=== PATIENT | female | born 1965 | race Caucasian/White ===

== ENCOUNTER 2019-06-16 00:33 | Inpatient (IN) | payer MEDICARE, OTHER ==
[~2019-06-16] VITALS: Ht 160 cm; Wt 77.1 kg
--- NOTE | 2019-06-16 01:00 | NUR ---
GPS ADMISSION NOTE, RECEIVED PATIENT FROM [facility] [place]. PATIENT ARRIVED ON THIS UNIT AT 0100 VIA STRETCHER WITH 2 EMT ESCORTS. PATIENT ADMITTED ON A 5150 HOLD FOR GD. PER HOLD PATIENT IS CONFUSED, DISORGANIZED, AND IS DISROBING. PATIENT CAN ONLY RECALL EATING AN ORANGE IN THE PAST FEW DAYS. ALL PATIENT CLOTHING IS COVERED WITH URIN. PATIENT HAS BEEN TAKING FOUR DAYS WORTH OF MEDICATION IN TWO DAYS. PATIENT UNABLE TO SELF CARE AT THIS TIME. THE 5150 WAS REVIEWED AND THE DOCUMENTATION IN THE 5150 HOLD APPEARS TO REFLECT THE PRESENTATION OF THE PATIENT. UPON FACE TO FACE ASSESSMENT PATIENT IS NOTED TO BEING ANXIOUS, DISHEVELED, DISORGANIZED, DEMANDING, COOPERATIVE AT TIMES, PARANOID, CONFUSED, AND NEEDS REDIRECTION. PATIENT IS CURRENTLY LYING IN BED AWAKE, HAS NO S/S OR COMPLAINTS OF PAIN. PATIENT IS DISPLAYING NO S/S OF APPARENT DISTRESS. PATIENT BREATHING IS UNLABORED WITH EQUAL RISE AND FALL OF THE CHEST. PATIENT IS ALERT AND ORIENTATED X 1 ON ROOM AIR. PATIENT ASSISTED WITH TURING AND REPOSITIONING Q2HR AND PRN FOR COMFORT AND CIRCULATION. PATIENT HAS NO NEEDS AT THIS TIME. PATIENT DENIES SUICIDE IDEATIONS AND HOMICIDAL IDEATIONS AT THIS TIME. PATIENT ADVISED OF HIS HOLD AND PATIENT RIGHTS BOOKLET GIVEN. PATIENT IS UNDER THE PSYCHIATRIC CARE OF DR. STOVER AND THE MEDICAL CARE OF DR CRUMP. PATIENT BELONGINGS WERE INVENTORIED AND CHECKED FOR CONTRABAND. ALL CONTRABAND REMOVED AND STORED IN PATIENT HALLWAY LOCKER. PATIENT ADVANCED DIRECTIVES PREFERENCE, IMMUNIZATIONS QUESTIONER, NECESSARY PAPERWORK COMPLETED. PATIENT SKIN ASSESSMENT COMPLETED. PATIENT REFUSED TO SIGN PAPERWORK. PATIENT ORIENTATED TO ROOM, FLOOR, AND STAFF WITH ALL QUESTIONS ANSWERED. PATIENT EDUCATED ON THE USE OF THE CALL BUENO. PATIENT BED SIDE RAILS ARE UP X 2 FOR SAFETY. PATIENT BED IS LOCKED, LOW AND I WILL CONTINUE TO MONITOR THIS PATIENT Q 15 MIN WITH THE HELP OF STAFF TO MAINTAIN SAFETY.
[2019-06-16] MEDS ORDERED: BLOOD SUGAR DIAGNOSTIC 1 EACH STRIP IN ONE (01:30)
[2019-06-16] MEDS ORDERED: MAGNESIUM HYDROXIDE 30 ML UDC PO PRN (01:30)
[2019-06-16] MEDS ORDERED: TEMAZEPAM 7.5 MG CAPSULE PO PRN (01:30)
[2019-06-16] MEDS ORDERED: MAG HYDROX/AL HYDROX/SIMETH 30 ML UDC PO PRN (01:30)
[2019-06-16] MEDS ORDERED: ATOR40TA PO (02:21)
[2019-06-16] MEDS ORDERED: GABA-534 PO ×2 (02:21→07:59)
[2019-06-16] MEDS ORDERED: DIVA500T54 PO (02:21)
[2019-06-16] MEDS ORDERED: METR70GE17 VG (02:21)
[2019-06-16] MEDS ORDERED: DOCU100C36 PO (02:21)
[2019-06-16] MEDS ORDERED: CLOZ100T32 PO (02:21)
[2019-06-16] MEDS ORDERED: VENL150C58 PO (02:21)
[2019-06-16] MEDS ORDERED: DOXY100C2 PO ×2 (02:30→23:02)
[2019-06-16] MEDS ORDERED: DIVA250T47 PO (07:59)
[2019-06-16 08:00] VITALS: BP 141/57
--- NOTE | 2019-06-16 08:42 | NUR ---
RN NOTE: CONTACTED [employer] WITH DR. CHING. AWAITING CALL BACK. Addendum: 06/16/19 at 1123 by YAIR CHRISTENSEN RN SPOKE WITH DR CHING, HE WILL REVIEW PATIENT'S MEDICATIONS
--- NOTE | 2019-06-16 11:16 | NUR ---
RN NOTE: PATIENT COMPLAINING OF UPSET STOMACH. PRN MAALOX GIVEN.
[2019-06-16 16:00] VITALS: BP 108/66
[2019-06-16] MEDS: GABAPENTIN 300 MG CAPSULE PO SCH (16:33)
[2019-06-16 20:00] VITALS: BP 102/73
[2019-06-16] MEDS: DIVALPROEX SODIUM 250 MG TABLET.DR PO SCH (20:09)
[2019-06-16] MEDS: ATORVASTATIN 40 MG TABLET PO SCH (21:42)
[2019-06-16] MEDS: METRONIDAZOLE 0.75% GEL 70 GM TUBE VG SCH (22:00)
[2019-06-16] MEDS ORDERED: CLOZAPINE 100 MG TABLET PO SCH (22:00)
--- NOTE | 2019-06-16 23:19 | NUR ---
GPS RN NOTE, PATIENT HAS A HISTORY OF PNEUMONIA, PATIENT WAS TAKING DOXYCYCLINE HYCLATE 100 MG PO BID, AND HAS AN ELEVATED WHITE BLOOD CELL COUNT OF 16.1 ON 06/14/19. PATIENT HAS UNPRODUCTIVE COUGH WITH A SPO2 94 %. PAGED [facility] AND INFORMED DR SHEA CRUMP OF MY FINDINGS. DR SHEA CRUMP ORDERED TO GIVE LEVAQUIN 500 MG PO QD TO BE STARTED AT 0900. ALL ORDERS NOTED AND CARRIED OUT. WILL CONTINUE TO MONITOR THIS PATIENT.
--- NOTE | 2019-06-16 23:30 | NUR ---
GPS RN NOTES: [employer] WAS READY WITH MEDICATION LEVAQUIN 500 MG FOR THE FIRST DOSE, HOWEVER [employer] WAS STOPPED BY THE CHARGE NURSE AND STATED THERE IS A NOTE NOT TO ADMINISTER, SO THE MEDICATION WAS NOT ADMINISTERED. MEDICATION THEN RETURNED ON THE OMNICELL. WILL ENDORSE TO DAY SHIFT NURSE.
[2019-06-16] MEDS ORDERED: LEVOFLOXACIN (500MG) 500 MG TABLET PO ONE (23:45)
[2019-06-17 07:08] LABS: CALCIUM, SERUM 9.5 mg/dL (8.5-10.1); POTASSIUM 4.7 mmol/L (3.5-5.1)
[2019-06-17 07:09] LABS: ALBUMIN 1.9 g/dL (3.4-5.0); BILIRUBIN,TOTAL 0.2 mg/dL (0.2-1.0); TOTAL PROTEIN, SERUM 6.8 g/dL (6.4-8.2)
[2019-06-17 07:10] LABS: CHOLESTEROL 107 mg/dL (<200); HDL CHOLESTEROL 27 mg/dL (40-60); LDL 65 mg/dL (0-99); TRIGLYCERIDES 147 mg/dL (30-150)
[2019-06-17 07:32] LABS: BASOPHILS % (AUTO) 0.3 % (0.0-2.0); EOSINOPHILS % (AUTO) 4.5 % (0.0-6.0); HEMATOCRIT 30 % (33-45); HEMOGLOBIN 9.6 g/dL (11.5-14.8); LYMPHOCYTES # (AUTO) 1.2 /CMM (0.8-4.8); LYMPHOCYTES % (AUTO) 10.4 % (20.0-44.0); MEAN CORPUSCULAR HGB CONC 32 g/dl (31.0-36.0); MEAN CORPUSCULAR VOLUME 90 fL (82-100); MONOCYTES # (AUTO) 1.5 /CMM (0.1-1.30); MONOCYTES % (AUTO) 12.5 % (2.0-12.0); NEUTROPHILS # (AUTO) 8.6 /CMM (1.8-8.9); NEUTROPHILS % (AUTO) 72.3 % (43.0-81.0); PLATELET COUNT (AUTO) 482 /CMM (150-450); RED BLOOD CELL COUNT(AUTO) 3.35 MIL/uL (4.0-5.2); WHITE BLOOD COUNT (AUTO) 11.9 K/uL (4.3-11.0)
[2019-06-17 08:00] VITALS: BP 111/64
[2019-06-17] MEDS: LEVOFLOXACIN (500MG) 500 MG TABLET PO SCH (08:34)
[2019-06-17] MEDS: DIVALPROEX SODIUM 250 MG TABLET.DR PO SCH ×2 (08:34→12:32)
[2019-06-17] MEDS: GABAPENTIN 300 MG CAPSULE PO SCH ×2 (08:34→12:32)
[2019-06-17] MEDS: DOCUSATE SODIUM 100 MG CAPSULE PO SCH ×2 (08:34→16:51)
[2019-06-17 16:00] VITALS: BP 108/71
[2019-06-17] MEDS: GABAPENTIN 100 MG CAPSULE PO SCH (16:51)
[2019-06-17] MEDS ORDERED: GABAPENTIN 300 MG CAPSULE PO SCH (17:00)
[2019-06-17 19:57] VITALS: BP 111/61
[2019-06-17] MEDS: DIVALPROEX SODIUM 125 MG TABLET.DR PO SCH (21:09)
[2019-06-17] MEDS: ATORVASTATIN 40 MG TABLET PO SCH (21:09)
--- NOTE | 2019-06-17 21:09 | NUR ---
GPS RN NOTE PT REQUESTING FOR SLEEPING MED. RESTORIL 7.5 MG PO GIVEN FOR INSOMNIA. CONTINUE TO MONITOR HER.
[2019-06-17] MEDS: CLOZAPINE 100 MG TABLET PO SCH (21:12)
[2019-06-17] MEDS: METRONIDAZOLE 0.75% GEL 70 GM TUBE VG SCH (21:35)
--- NOTE | 2019-06-17 22:09 | NUR ---
GPS RN NOTE PT FALL ASLEEP. NO DISTRESS OR DISCOMFORT NOTED.
[2019-06-18 07:42] LABS: BASOPHILS # (AUTO) 0.1 /CMM (0.0-0.2); BASOPHILS % (AUTO) 0.6 % (0.0-2.0); EOSINOPHILS % (AUTO) 4.4 % (0.0-6.0); HEMATOCRIT 28 % (33-45); HEMOGLOBIN 9.3 g/dL (11.5-14.8); LYMPHOCYTES # (AUTO) 1.9 /CMM (0.8-4.8); LYMPHOCYTES % (AUTO) 15.2 % (20.0-44.0); MEAN CORPUSCULAR HGB CONC 33 g/dl (31.0-36.0); MEAN CORPUSCULAR VOLUME 90 fL (82-100); MONOCYTES # (AUTO) 1.3 /CMM (0.1-1.30); NEUTROPHILS # (AUTO) 8.5 /CMM (1.8-8.9); NEUTROPHILS % (AUTO) 68.8 % (43.0-81.0); PLATELET COUNT (AUTO) 492 /CMM (150-450); RED BLOOD CELL COUNT(AUTO) 3.15 MIL/uL (4.0-5.2); WHITE BLOOD COUNT (AUTO) 12.3 K/uL (4.3-11.0)
[2019-06-18 07:55] LABS: ALBUMIN 1.9 g/dL (3.4-5.0); BILIRUBIN,TOTAL 0.1 mg/dL (0.2-1.0); CALCIUM, SERUM 9.3 mg/dL (8.5-10.1); CREATININE 1.1 mg/dL (0.6-1.3); POTASSIUM 4.6 mmol/L (3.5-5.1); TOTAL PROTEIN, SERUM 6.6 g/dL (6.4-8.2)
[2019-06-18 08:00] VITALS: BP 100/52
[2019-06-18] MEDS: LEVOFLOXACIN (500MG) 500 MG TABLET PO SCH (08:05)
[2019-06-18] MEDS: DOCUSATE SODIUM 100 MG CAPSULE PO SCH ×2 (08:05→17:24)
[2019-06-18] MEDS: DIVALPROEX SODIUM 125 MG TABLET.DR PO SCH ×3 (08:05→21:17)
[2019-06-18] MEDS: GABAPENTIN 100 MG CAPSULE PO SCH ×3 (08:05→17:24)
[2019-06-18 09:59] LABS: BAND % (MANUAL) 1 % (0.0-5.0); LYMPHOCYTES % (MANUAL) 14 % (16-48); MONOCYTES % (MANUAL) 8 % (0-11.0); NEUTROPHILS % (MANUAL) 72 (42-76)
[2019-06-18 10:00] LABS: EOSINOPHILS % (MANUAL) 5 % (0-4)
[2019-06-18] MEDS: ACETAMINOPHEN 325 MG TABLET PO PRN (13:51)
[2019-06-18 16:00] VITALS: BP 124/78
[2019-06-18 20:28] VITALS: BP 117/89
[2019-06-18] MEDS: ATORVASTATIN 40 MG TABLET PO SCH (21:17)
[2019-06-18] MEDS: CLOZAPINE 100 MG TABLET PO SCH (21:18)
[2019-06-18] MEDS: METRONIDAZOLE 0.75% GEL 70 GM TUBE VG SCH (21:23)
[2019-06-19 00:14] LABS: APPEARANCE,URINE CLEAR (CLEAR); BILIRUBIN,URINE NEGATIVE (NEGATIVE); BLOOD, URINE NEGATIVE Ery/uL (NEGATIVE); COLOR,URINE OTHER (YELLOW); KETONES,URINE NEGATIVE (NEGATIVE); LEUKOCYTE ESTERASE ,URINE NEGATIVE (NEGATIVE); NITRITE, URINE NEGATIVE (NEGATIVE); PH,URINE 6.5 (5.0-8.0); PROTEIN,URINE NEGATIVE (NEGATIVE); UGLUCOSE NEGATIVE (NEGATIVE); UROBILINOGEN,URINE 0.2 EU/dL (0.2)
[2019-06-19 08:00] VITALS: BP 100/75
[2019-06-19] MEDS: LEVOFLOXACIN (500MG) 500 MG TABLET PO SCH (08:06)
[2019-06-19] MEDS: GABAPENTIN 100 MG CAPSULE PO SCH ×3 (08:06→16:29)
[2019-06-19] MEDS: DOCUSATE SODIUM 100 MG CAPSULE PO SCH ×2 (08:06→16:29)
[2019-06-19] MEDS: DIVALPROEX SODIUM 125 MG TABLET.DR PO SCH ×3 (08:06→19:40)
--- NOTE | 2019-06-19 10:56 | NUR ---
INITIAL DISCHARGE PLAN: Patient wishes to return home to [address] [facility] [address]. SW will help form a safe and proper discharge in collaboration with .
--- NOTE | 2019-06-19 14:00 | NUR ---
GROUP NOTE: SW encouraged pt to participate in group therapy on this present day to discuss "positive coping skills." Pt refused to attend and stated that she would rather stay in her room where she felt same. Pt requested the phone so she could talk to her sister. SW provided intervention and addressed pts treatment and discharge plan, pt stated that she was ready to go home and that she did not want to stay here until Monday as she felt she has received the help she needed and is ready to go back to her normal life.
[2019-06-19 16:00] VITALS: BP 123/68
[2019-06-19] MEDS: ACETAMINOPHEN 325 MG TABLET PO PRN (18:21)
--- NOTE | 2019-06-19 18:21 | NUR ---
GPS/RN-NOTES PATIENT C/O BOTH LEGS PAIN AND REQUESTING TYLENOL. TYLENOL 650MG P.O GIVEN PRN ORDER. WILL ENDORSE TO INCOMING NURSE FOR MONITORING AND CONTINUITY OF CARE.
[2019-06-19 20:07] VITALS: BP_SYST 123; BP_SYST 146; BP_DIAS 70; BP_DIAS 77
[2019-06-19] MEDS: METRONIDAZOLE 0.75% GEL 70 GM TUBE VG SCH (21:05)
[2019-06-19] MEDS: ATORVASTATIN 40 MG TABLET PO SCH (21:05)
[2019-06-19] MEDS: CLOZAPINE 100 MG TABLET PO SCH (21:06)
[2019-06-19] MEDS: LORAZEPAM 0.5 MG TABLET PO PRN (22:27)
[2019-06-20 08:00] VITALS: BP 100/62
[2019-06-20] MEDS: LEVOFLOXACIN (500MG) 500 MG TABLET PO SCH (08:26)
[2019-06-20] MEDS: DIVALPROEX SODIUM 125 MG TABLET.DR PO SCH ×3 (08:26→19:51)
[2019-06-20] MEDS: GABAPENTIN 100 MG CAPSULE PO SCH ×3 (08:26→16:19)
[2019-06-20] MEDS: DOCUSATE SODIUM 100 MG CAPSULE PO SCH ×2 (08:26→16:19)
--- NOTE | 2019-06-20 09:07 | NUR ---
INTERVENTION: SW informed pt of her PROBABLE CAUSE hearing scheduled on this present day. pt stated that she did not want to attend and wanted to stay here until the doctor decided when it was time for her to go.
--- NOTE | 2019-06-20 13:32 | NUR ---
PATY received a call from DIVYA Quesada at [facility] [address] [place] [address], [phone] stating that transportation can be arranged for pt on Monday06/24/19 at 12:00pm. PATY confirmed flower buncher or picker and discharge for Monday06/24/19
[2019-06-20 16:00] VITALS: BP 135/93
--- NOTE | 2019-06-20 17:01 | NUR ---
RN NOTE: PATIENT COMPLAINING OF PAIN 4/10 ON ABDOMEN. PRN TYLENOL GIVEN.
[2019-06-20 20:34] VITALS: BP 107/61
[2019-06-20] MEDS: CLOZAPINE 100 MG TABLET PO SCH (21:07)
[2019-06-20] MEDS: ATORVASTATIN 40 MG TABLET PO SCH (21:07)
[2019-06-20] MEDS: METRONIDAZOLE 0.75% GEL 70 GM TUBE VG SCH (21:08)
[2019-06-20] MEDS: LORAZEPAM 0.5 MG TABLET PO PRN (23:10)
[2019-06-21 07:40] LABS: BASOPHILS # (AUTO) 0.1 /CMM (0.0-0.2); BASOPHILS % (AUTO) 0.7 % (0.0-2.0); EOSINOPHILS % (AUTO) 5.8 % (0.0-6.0); HEMATOCRIT 31 % (33-45); HEMOGLOBIN 10.1 g/dL (11.5-14.8); LYMPHOCYTES # (AUTO) 1.7 /CMM (0.8-4.8); LYMPHOCYTES % (AUTO) 21.7 % (20.0-44.0); MEAN CORPUSCULAR HGB CONC 32 g/dl (31.0-36.0); MEAN CORPUSCULAR VOLUME 90 fL (82-100); MONOCYTES # (AUTO) 0.9 /CMM (0.1-1.30); MONOCYTES % (AUTO) 11.3 % (2.0-12.0); NEUTROPHILS # (AUTO) 4.6 /CMM (1.8-8.9); NEUTROPHILS % (AUTO) 60.5 % (43.0-81.0); PLATELET COUNT (AUTO) 574 /CMM (150-450); RED BLOOD CELL COUNT(AUTO) 3.48 MIL/uL (4.0-5.2); WHITE BLOOD COUNT (AUTO) 7.6 K/uL (4.3-11.0)
[2019-06-21 07:45] LABS: ALBUMIN 2.3 g/dL (3.4-5.0); BILIRUBIN,TOTAL 0.1 mg/dL (0.2-1.0); CALCIUM, SERUM 9.3 mg/dL (8.5-10.1); CREATININE 1.2 mg/dL (0.6-1.3); POTASSIUM 4.4 mmol/L (3.5-5.1); TOTAL PROTEIN, SERUM 6.7 g/dL (6.4-8.2)
[2019-06-21 08:00] VITALS: BP 113/65
[2019-06-21] MEDS: LEVOFLOXACIN (500MG) 500 MG TABLET PO SCH (08:19)
[2019-06-21] MEDS: DIVALPROEX SODIUM 125 MG TABLET.DR PO SCH ×3 (08:19→20:15)
[2019-06-21] MEDS: DOCUSATE SODIUM 100 MG CAPSULE PO SCH ×2 (08:19→16:35)
[2019-06-21] MEDS: GABAPENTIN 100 MG CAPSULE PO SCH ×3 (08:19→16:35)
--- NOTE | 2019-06-21 10:16 | NUR ---
PATY contacted Sangita RN at [facility] [address] [place] [address], [phone] to confirm transportation for pt on Monday06/24/19. Per Sangita, transportation will be provided through [employer] [phone] and also stated that they are requesting discharge paperwork the day of pts discharge be faxed to [phone] for picker / packer. PATY will fax discharge paperwork on Monday06/24/19.
--- NOTE | 2019-06-21 15:21 | NUR ---
GROUP NOTE: SW encouraged pt to participate in group therapy on this present day to discuss "discharge planning." Pt was asleep and not easily aroused.
[2019-06-21 16:27] VITALS: BP 101/73
[2019-06-21] MEDS: LORAZEPAM 0.5 MG TABLET PO PRN (19:46)
[2019-06-21 20:00] VITALS: BP 126/80
[2019-06-21] MEDS: CLOZAPINE 25 MG TABLET PO SCH (21:31)
[2019-06-21] MEDS: ATORVASTATIN 40 MG TABLET PO SCH (21:32)
[2019-06-21] MEDS: CLOZAPINE 100 MG TABLET PO SCH (21:32)
[2019-06-21] MEDS ORDERED: CLOZAPINE 25 MG TABLET PO SCH (22:00)
[2019-06-22 08:00] VITALS: BP 106/68
[2019-06-22] MEDS: DIVALPROEX SODIUM 125 MG TABLET.DR PO SCH ×3 (08:45→20:49)
[2019-06-22] MEDS: DOCUSATE SODIUM 100 MG CAPSULE PO SCH ×2 (08:45→16:23)
[2019-06-22] MEDS: LEVOFLOXACIN (500MG) 500 MG TABLET PO SCH (08:45)
[2019-06-22] MEDS: GABAPENTIN 100 MG CAPSULE PO SCH ×3 (08:45→16:23)
[2019-06-22 16:00] VITALS: BP 140/89
[2019-06-22] MEDS: LORAZEPAM 0.5 MG TABLET PO PRN (18:22)
--- NOTE | 2019-06-22 18:22 | NUR ---
GPS/RN-NOTES PATIENT REQUESTING ATIVAN STATED" I'M VERY ANXIOUS I NEED ATIVAN" ATIVAN 0.5MG P.O GIVEN PRN ORDER. WILL CONT. MONITORING FOR SAFETY AND BEHAVIOR.
[2019-06-22 20:00] VITALS: BP 115/72
[2019-06-22] MEDS: CLOZAPINE 25 MG TABLET PO SCH (21:07)
[2019-06-22] MEDS: CLOZAPINE 100 MG TABLET PO SCH (21:07)
[2019-06-22] MEDS: ATORVASTATIN 40 MG TABLET PO SCH (21:07)
[2019-06-23 08:00] VITALS: BP 102/57
[2019-06-23] MEDS: LEVOFLOXACIN (500MG) 500 MG TABLET PO SCH (08:17)
[2019-06-23] MEDS: GABAPENTIN 100 MG CAPSULE PO SCH ×3 (08:17→17:18)
[2019-06-23] MEDS: DOCUSATE SODIUM 100 MG CAPSULE PO SCH ×2 (08:17→17:19)
[2019-06-23] MEDS: DIVALPROEX SODIUM 125 MG TABLET.DR PO SCH ×3 (08:17→21:00)
[2019-06-23] MEDS: LORAZEPAM 0.5 MG TABLET PO PRN ×2 (12:52→19:41)
[2019-06-23 16:02] VITALS: BP 112/64
[2019-06-23 20:51] VITALS: BP 121/71
[2019-06-23] MEDS: CLOZAPINE 100 MG TABLET PO SCH (21:37)
[2019-06-23] MEDS: CLOZAPINE 25 MG TABLET PO SCH (21:37)
[2019-06-23] MEDS: ATORVASTATIN 40 MG TABLET PO SCH (21:37)
[2019-06-24 08:00] VITALS: BP 104/60
[2019-06-24] MEDS: DIVALPROEX SODIUM 125 MG TABLET.DR PO SCH ×2 (08:41→12:31)
[2019-06-24] MEDS: GABAPENTIN 100 MG CAPSULE PO SCH ×2 (08:41→12:31)
[2019-06-24] MEDS: LEVOFLOXACIN (500MG) 500 MG TABLET PO SCH (08:41)
[2019-06-24] MEDS: DOCUSATE SODIUM 100 MG CAPSULE PO SCH (09:14)
--- NOTE | 2019-06-24 09:49 | NUR ---
DISCHARGE NOTE: Pt will be discharged at 1:00pm via [facility] home to [address] [place] [address]. Pts mood is euthymic with congruent affect. Pt denied visual/auditory hallucinations and denied suicidal/homicidal ideation. Pt will follow up with [facility] [address] [place] [address], [facility] on Monday06/25/19 at 11:00am and pt will schedule a follow up appointment with Dry Mixer: Dr. Lui Aldana Address: [address] [place] [id number] . SW has faxed discharge clinicals to [facility]: [phone]. The multidisciplinary exit care form was done, printed, signed, and given to the patient.
--- NOTE | 2019-06-24 13:27 | NUR ---
PATY contacted [facility] to request pick up truck driver time. Per Haydee, she stated she did not have a pick up truck driver time and stated that it may take up to 72 hours for pt to be scheduled for transport. PATY explained that this was not what she was told when the ride was scheduled this morning. Haydee stated that there was nothing she could do and that PATY needed to wait for a call.
--- NOTE | 2019-06-24 13:48 | NUR ---
PATY contacted Yadi, case technician at [facility] [address] [place] [address], [phone] informing her that [facility] does not have pt scheduled for berry picker and that it may take up to 72 hours to schedule pt and transport her home. PATY informed her that pt is scheduled for discharge on this present day and cannot be hospitalized due to transportation issues. Yadi stated that she would contact [facility] as she received different information this morning.
--- NOTE | 2019-06-24 13:56 | NUR ---
PATY received a call from Yadi, keycase assembler at [facility] [address] [place] [address], [phone] informing PATY that she received confirmation from [employer] transportation that they will be coming on this present day to cotton picking machine operator pt. Yadi stated that [employer] will contact SW to confirm cotton picking machine operator time.
--- NOTE | 2019-06-24 15:52 | NUR ---
SW contacted [facility] to request picking table worker time. Per trench shovel operator pt has a scheduled picking table worker time for 4:00pm on this present day.
--- NOTE | 2019-06-24 16:34 | NUR ---
GPS/RN-NOTES DISCHARGE PATIENT TO HOME TODAY. DR. STOVER AND DR. LIN AWARE AND AGREES OF PATIENT DISCHARGE .ALL DISCHARGE MEDICATIONS WAS REVIEWED WITH THE PATIENT WITH UNDERSTANDING, RX WAS GIVEN TO THE PATIENT. PATIENT DID NOT VERBALIZE SI/HI,DENIES VISUAL/AUDITORY HALLUCINATIONS AT THE TIME OF DISCHARGE. INSTRUCTED PATIENT TO CALL 911 OR GO TO THE NEAREST EMERGENCY ROOM INCASE OF EMERGENCY.PATIENT LEFT THE UNIT IN STABLE CONDITION ALERT ORIENTED X4 AMBULATORY STEADY GAIT WITH HER BELONGINGS..PATIENT WAS LICENSE DISTRIBUTOR BY [employer] ( [employer] MA[employer]GER [employer] ) .REHABILITATION COUNSELOR DID TRIED TO CALL PATIENT'S SISTER DARIANA MCKEON [phone] BUT ANSWER.
== END 2019-06-24 16:30 | disposition home or self-care (01) | DRG 885 ==
LOC: GPS 00:33
PROVIDERS: ADMIT Psychiatry & Neurology Psychosomatic Medicine; ATTEND Nurse Practitioner Acute Care
DX: F25.0 Schizoaffective disorder, bipolar type (principal); E43 Unspecified severe protein-calorie malnutrition; E11.65 Type 2 diabetes mellitus with hyperglycemia; F23 Brief psychotic disorder; D68.59 Other primary thrombophilia; E78.5 Hyperlipidemia, unspecified; N76.0 Acute vaginitis; F09 Unspecified mental disorder due to known physiological condition; E66.01 Morbid (severe) obesity due to excess calories; Z68.30 Body mass index [BMI] 30.0-30.9, adult
CPT/HCPCS: 36415; 80053-TC; 80061-TC; 81000-TC; 82962-TC; 85025-TC; 87081-TC

== ENCOUNTER 2022-11-12 11:22 | Inpatient (IN) | payer MEDICARE, OTHER ==
[~2022-11-12] VITALS: Ht 162.6 cm; Wt 42.6 kg
[~2022-11-12 11:22] MED LIST: ATOR40TA PO; DOCU100C36 PO; DOXY100C2 PO; METR70GE17 VG
--- NOTE | 2022-11-12 11:33 | NUR ---
PIYUSH FROM [facility] C/O AGITATION SINCE THIS MORNING. PT TRANSFERRED TO BED AND CONNECTED TO MONITOR. VSS. BREATHING EVEN AND UNLABORED. AWAITING MD ORDERS.
--- NOTE | 2022-11-12 11:43 | NUR ---
MOVE SHEET SUBMITTED.
--- NOTE | 2022-11-12 11:55 | NUR ---
URINE SAMPLE COLLECTED AND SENT TO LAB.
--- NOTE | 2022-11-12 12:00 | NUR ---
PHLEB AT BEDSIDE FOR BLOOD DRAW
--- NOTE | 2022-11-12 12:06 | NUR ---
COVID SWAB OBTAINED AND PLACED IN DROP OFF BOX
[2022-11-12 12:08] LABS: BASOPHILS % (AUTO) 0.2 % (0.0-2.0); EOSINOPHILS % (AUTO) 0.7 % (0.0-6.0); HEMATOCRIT 41 % (33-45); HEMOGLOBIN 13.6 g/dL (11.5-14.8); LYMPHOCYTES # (AUTO) 2.2 K/uL (0.8-4.8); MEAN CORPUSCULAR HGB CONC 33 g/dl (31.0-36.0); MEAN CORPUSCULAR VOLUME 92 fL (82-100); MONOCYTES # (AUTO) 1.2 K/uL (0.1-1.30); MONOCYTES % (AUTO) 10.6 % (2.0-12.0); NEUTROPHILS # (AUTO) 8.1 K/uL (1.8-8.9); NEUTROPHILS % (AUTO) 69.5 % (43.0-81.0); PLATELET COUNT (AUTO) 255 K/uL (150-450); RED BLOOD CELL COUNT(AUTO) 4.45 MIL/uL (4.0-5.2); WHITE BLOOD COUNT (AUTO) 11.7 K/uL (4.3-11.0)
[2022-11-12 12:16] LABS: BILIRUBIN,URINE NEGATIVE (NEGATIVE); COLOR,URINE YELLOW (YELLOW); LEUKOCYTE ESTERASE ,URINE NEGATIVE (NEGATIVE); NITRITE, URINE NEGATIVE (NEGATIVE); PROTEIN,URINE NEGATIVE (NEGATIVE); UGLUCOSE NEGATIVE (NEGATIVE); UROBILINOGEN,URINE 0.2 EU/dL (0.2)
[2022-11-12 12:46] LABS: CALCIUM, SERUM 9.4 mg/dL (8.5-10.1); CARBON DIOXIDE 29 mmol/L (21-32); CHLORIDE 96 mmol/L (98-107); CREATININE 1.2 mg/dL (0.6-1.3); GLUCOSE 109 mg/dL (74-106); POTASSIUM 3.5 mmol/L (3.5-5.1); SODIUM SERUM 135 mmol/L (136-145); UREA NITROGEN, BLOOD 27 mg/dL (7-18)
[2022-11-12 12:52] LABS: ALANINE AMINOTRANSFERASE 27 U/L (12-78); ALBUMIN 3.7 g/dL (3.4-5.0); ALKALINE PHOSPHATASE 59 U/L (46-116); ASPARTATE AMINOTRANSFERASE 28 U/L (15-37); BILIRUBIN,TOTAL 0.4 mg/dL (0.2-1.0); TOTAL PROTEIN, SERUM 7.4 g/dL (6.4-8.2)
[2022-11-12 13:03] LABS: BILIRUBIN,DIRECT 0.1 mg/dL (0.0-0.2)
[2022-11-12 13:08] LABS: ACETAMINOPHEN < 10 ug/ml (10-30)
[2022-11-12 13:09] LABS: ALCOHOL, BLOOD < 3 mg/dL (0-0)
[2022-11-12] MEDS ORDERED: RISP1TAB7 PO (13:32)
[2022-11-12] MEDS ORDERED: NA P133E RC (13:32)
[2022-11-12] MEDS ORDERED: COGENTIN PO (13:32)
[2022-11-12] MEDS ORDERED: CRAN400C PO (13:32)
[2022-11-12] MEDS ORDERED: DOCU-141 PO (13:32)
[2022-11-12] MEDS ORDERED: BISA10SU11 RC (13:32)
[2022-11-12] MEDS ORDERED: TEMA15CA5 PO (13:32)
[2022-11-12] MEDS ORDERED: LACT-58 PO (13:32)
[2022-11-12] MEDS ORDERED: MEGE40TA7 PO (13:32)
[2022-11-12] MEDS ORDERED: MIRT-121 PO (13:32)
[2022-11-12] MEDS ORDERED: MAGN400O6 PO (13:32)
[2022-11-12] MEDS ORDERED: LORA-258 PO (13:32)
[2022-11-12] MEDS ORDERED: ACET325T53 PO (13:32)
--- NOTE | 2022-11-12 15:20 | NUR ---
GOT BED 214-A
--- NOTE | 2022-11-12 16:11 | NUR ---
[facility] ON [address].
--- NOTE | 2022-11-12 16:15 | NUR ---
REPORT GIVEN TO KRISTAN STOKES, AWAITING PATIENT HOLD BEFORE TRANSFER
--- NOTE | 2022-11-12 17:18 | NUR ---
CALLED [facility] [phone] SOON
--- NOTE | 2022-11-12 19:10 | NUR ---
PT TAKEN TO GPS UNIT VIA [facility].
--- NOTE | 2022-11-12 19:45 | NUR ---
GPS ADMISSION NOTE, RECEIVED PATIENT FROM [facility] PATIENT ARRIVED ON THIS UNIT AT 1945 VIA STRETCHER WITH 2 BATCH MIXING TRUCK DRIVER ESCORTS. PATIENT ADMITTED ON A 5150 HOLD FOR GD AND DTO. PER HOLD PATIENT IS CONFUSED, NOT ANSWERING QUESTIONS, AND KEEPS TALKING ABOUT RANDOM THINGS. STAFF AT THIS PATIENTS FACILITY REPORTED THAT THIS PATIENT HAS BEEN AGITATED, ATTEMPTED TO HIT STAFF, AND OTHER RESIDENTS. PATIENT UNABLE TO CONTRACT FOR SAFETY AT THAT TIME. THE 5150 WAS REVIEWED AND THE DOCUMENTATION IN THE 5150 HOLD APPEARS TO REFLECT THE PRESENTATION OF THE PATIENT. UPON FACE TO FACE ASSESSMENT PATIENT IS NOTED TO BEING DISHEVELED, DISORGANIZED, CONFUSED, COOPERATIVE, AND NEEDS REDIRECTION. PATIENT IS CURRENTLY LYING IN BED AWAKE, HAS NO S/S OR COMPLAINTS OF PAIN. PATIENT IS DISPLAYING NO S/S OF APPARENT DISTRESS. PATIENT BREATHING IS UNLABORED WITH EQUAL RISE AND FALL OF THE CHEST. PATIENT IS ALERT AND ORIENTATED X 1 ON ROOM AIR. PATIENT ASSISTED WITH TURING AND REPOSITIONING Q2HR AND PRN FOR COMFORT AND CIRCULATION. PATIENT HAS NO NEEDS AT THIS TIME. PATIENT DENIES SUICIDE IDEATIONS AND HOMICIDAL IDEATIONS AT THIS TIME. PATIENT REFUSED TO SIGNS ANY PAPER WORK AND IS TO CONFUSED. PATIENT ADVISED OF HER HOLD AND PATIENT RIGHTS BOOKLET GIVEN. PATIENT IS UNDER THE PSYCHIATRIC CARE OF DR. STOVER AND THE MEDICAL CARE OF DR. WHITNEY. PATIENT BELONGINGS WERE INVENTORIED AND CHECKED FOR CONTRABAND. ALL CONTRABAND REMOVED AND STORED IN PATIENT HALLWAY LOCKER. PATIENT ADVANCED DIRECTIVES PREFERENCE, IMMUNIZATIONS QUESTIONER, AND NECESSARY PAPERWORK COMPLETED. PATIENT SKIN ASSESSMENT COMPLETED. PATIENT ORIENTATED TO ROOM, FLOOR, AND STAFF WITH ALL QUESTIONS ANSWERED. PATIENT EDUCATED ON THE USE OF THE CALL LIGHT. PATIENT BED SIDE RAILS ARE UP X 2 FOR SAFETY. PATIENT BED IS LOCKED, LOW, AND I WILL CONTINUE TO MONITOR THIS PATIENT Q 15 MIN WITH THE HELP OF STAFF TO MAINTAIN SAFETY.
[2022-11-12 19:50] VITALS: BP 132/74
[2022-11-12] MEDS ORDERED: MAGNESIUM HYDROXIDE 30 ML UDC PO PRN (20:00)
[2022-11-12] MEDS ORDERED: ACETAMINOPHEN 325 MG TABLET PO PRN (20:00)
[2022-11-12] MEDS ORDERED: MAG HYDROX/AL HYDROX/SIMETH 30 ML UDC PO PRN (20:00)
--- NOTE | 2022-11-12 20:10 | NUR ---
GPS RN NOTES: PAGEPaula WHITNEY STACKER AND INFORMED HIM THAT THIS PATIENT NEEDS A MEDICATION RECONCILIATION. TAMMIE WHITNEY NP STATED, " OK ". WILL CONTINUE TO MONITOR THIS PATIENT WITH THE HELP OF STAFF.
[2022-11-12 20:24] VITALS: BP 132/74
[2022-11-12] MEDS ORDERED: BLOOD SUGAR DIAGNOSTIC 1 EACH STRIP IN ONE (21:00)
[2022-11-13] MEDS ORDERED: Z GUARD REMEDY 4 OZ OINT TP PRN
[2022-11-13 08:00] VITALS: BP 145/80
[2022-11-13] MEDS ORDERED: ENSURE ENLIVE CHOC 237 ML CAN PO SCH (08:00)
[2022-11-13] MEDS ORDERED: ACETAMINOPHEN 325 MG TABLET PO PRN (09:00)
[2022-11-13] MEDS ORDERED: BISACODYL SUPP (10 MG) 10 MG/SUPP.RECT SUPP.RECT RC PRN (09:00)
[2022-11-13] MEDS ORDERED: MAGNESIUM HYDROXIDE 30 ML UDC PO PRN (09:00)
[2022-11-13] MEDS ORDERED: CRANBERRY PO SCH (09:00)
[2022-11-13] MEDS ORDERED: NA PHOS,M-B/NA PHOS,DI-BA 1 EA ENEMA RC PRN (09:00)
[2022-11-13] MEDS: DOCUSATE SODIUM 100 MG CAPSULE PO SCH (09:36)
[2022-11-13] MEDS: MEGESTROL ACETATE 40 MG TABLET PO SCH ×2 (09:36→16:01)
[2022-11-13] MEDS: OLANZAPINE 2.5 MG TABLET PO SCH ×2 (12:14→16:01)
[2022-11-13] MEDS: ENSURE ENLIVE CHOC 237 ML CAN PO SCH ×2 (13:05→17:00)
[2022-11-13] MEDS: LORAZEPAM 0.5 MG TABLET PO PRN ×2 (15:33→23:02)
--- NOTE | 2022-11-13 15:34 | NUR ---
RN-CO: ATIVAN BARCODE WAS ENTERED MANUALLY BECIT DOES NOT WANT TO SCAN , BARS ARE BLURRY. ATIVAN 0.5 MG GIVEN FOR ANXIETY.
[2022-11-13 16:00] VITALS: BP 178/97
[2022-11-13] MEDS: TEMAZEPAM 7.5 MG CAPSULE PO PRN (20:56)
[2022-11-13 21:13] VITALS: BP 147/70
--- NOTE | 2022-11-13 23:05 | NUR ---
Patient noted to be restless,anxious,not able to verbalize her needs .Ativan 0.5 mg PO was given per clinical assessment.Will monitor for the effectiveness in 1 hour.
[2022-11-14 08:00] VITALS: BP 132/80
[2022-11-14] MEDS: ENSURE ENLIVE CHOC 237 ML CAN PO SCH ×3 (08:02→16:31)
[2022-11-14 08:47] LABS: BASOPHILS % (AUTO) 0.3 % (0.0-2.0); EOSINOPHILS % (AUTO) 0.4 % (0.0-6.0); HEMATOCRIT 45 % (33-45); HEMOGLOBIN 14.7 g/dL (11.5-14.8); LYMPHOCYTES # (AUTO) 1.8 K/uL (0.8-4.8); LYMPHOCYTES % (AUTO) 10.3 % (20.0-44.0); MEAN CORPUSCULAR HGB CONC 33 g/dl (31.0-36.0); MEAN CORPUSCULAR VOLUME 93 fL (82-100); MONOCYTES % (AUTO) 5.5 % (2.0-12.0); NEUTROPHILS % (AUTO) 83.5 % (43.0-81.0); PLATELET COUNT (AUTO) 281 K/uL (150-450); RED BLOOD CELL COUNT(AUTO) 4.83 MIL/uL (4.0-5.2)
[2022-11-14] MEDS: MEGESTROL ACETATE 40 MG TABLET PO SCH ×2 (08:59→16:31)
[2022-11-14] MEDS: DOCUSATE SODIUM 100 MG CAPSULE PO SCH (08:59)
[2022-11-14] MEDS: OLANZAPINE 2.5 MG TABLET PO SCH ×3 (08:59→16:31)
[2022-11-14 09:00] LABS: CALCIUM, SERUM 9.9 mg/dL (8.5-10.1); CREATININE 1.1 mg/dL (0.6-1.3); POTASSIUM 3.3 mmol/L (3.5-5.1)
--- NOTE | 2022-11-14 09:41 | NUR ---
PATY Clinical Note: Pt placed on a 5150 hold for danger to others and GD. Pt was agitated at her facility and was aggressive towards staff. Patient currently resides at [facility] [place] [address] ([phone]). PATY spoke with Rhoda valentino ([phone]) who stated that pt is welcomed back. PATY will contact pt's sister Chelsie ([phone]) and will discuss treatment/discharge plan.
--- NOTE | 2022-11-14 09:41 | NUR ---
PATY Initial Discharge Plan: Patient currently resides at [facility] [address] [place] [address] ([phone]). PATY spoke with Rhoda valentino ([phone]) who stated that pt is welcomed back. PATY will contact pt's sister Chelsie ([phone]) and will discuss treatment/discharge plan. PATY will work with the MD, family, and pt to help coordinate appropriate discharge.
--- NOTE | 2022-11-14 09:42 | NUR ---
Treatment Plan: Pt refused to sign treatment plan and was blankly staring at this show card writer.
--- NOTE | 2022-11-14 09:45 | NUR ---
RN-CO: Dr Hercules made aware regarding patient's k level, 3.3, WBC 18, NA 132. MD ORDERED KCL 40 MEQ X 1 NOTED AND CARRIED OUT.
[2022-11-14] MEDS ORDERED: POTASSIUM CHLORIDE 20 MEQ TAB.PRT.SR PO ONE (10:00)
--- NOTE | 2022-11-14 10:40 | NUR ---
CERTIFIED PHLEBOTOMIST NOTE ATTEMPTED TO GIVE K-DUR TAB TO PATIENT, PATIENT DID ATTEMPT AND CHANGED HER MIND. CONTACTED PHARMACY TO CHANGE FROM TAB TO PACKET. MEDICATION DISCARDED. CHARGE NURSE ADVISED.
--- NOTE | 2022-11-14 11:09 | NUR ---
PATY Family Contact: PATY contacted pt's sister Chelsie ([phone]) but was unable to leave a voicemail of admission, treatment plan, and discharge plan.
[2022-11-14] MEDS ORDERED: POTASSIUM CHLORIDE 20 MEQ POWDER PACKET PO ONE (12:30)
[2022-11-14 16:00] VITALS: BP 123/76
[2022-11-14 19:40] VITALS: BP 118/58
[2022-11-15 06:34] VITALS: BP 118/58
[2022-11-15 07:03] LABS: BASOPHILS % (AUTO) 0.2 % (0.0-2.0); EOSINOPHILS % (AUTO) 0.9 % (0.0-6.0); HEMATOCRIT 40 % (33-45); HEMOGLOBIN 13.2 g/dL (11.5-14.8); LYMPHOCYTES # (AUTO) 1.9 K/uL (0.8-4.8); LYMPHOCYTES % (AUTO) 11.2 % (20.0-44.0); MEAN CORPUSCULAR HGB CONC 33 g/dl (31.0-36.0); MEAN CORPUSCULAR VOLUME 91 fL (82-100); MONOCYTES # (AUTO) 1.1 K/uL (0.1-1.30); MONOCYTES % (AUTO) 6.6 % (2.0-12.0); NEUTROPHILS % (AUTO) 81.1 % (43.0-81.0); PLATELET COUNT (AUTO) 278 K/uL (150-450); RED BLOOD CELL COUNT(AUTO) 4.37 MIL/uL (4.0-5.2); WHITE BLOOD COUNT (AUTO) 17.2 K/uL (4.3-11.0)
[2022-11-15 07:48] LABS: CALCIUM, SERUM 9.3 mg/dL (8.5-10.1); CREATININE 1.1 mg/dL (0.6-1.3); POTASSIUM 4.1 mmol/L (3.5-5.1)
[2022-11-15 08:00] VITALS: BP 111/73
[2022-11-15] MEDS: ENSURE ENLIVE CHOC 237 ML CAN PO SCH ×3 (08:23→16:29)
[2022-11-15] MEDS: DOCUSATE SODIUM 100 MG CAPSULE PO SCH (08:26)
[2022-11-15] MEDS: MEGESTROL ACETATE 40 MG TABLET PO SCH ×2 (08:26→16:29)
[2022-11-15] MEDS: OLANZAPINE 2.5 MG TABLET PO SCH ×3 (08:26→16:29)
[2022-11-15] MEDS ORDERED: POTASSIUM CHLORIDE 20 MEQ POWDER PACKET PO ONE (09:00)
[2022-11-15] MEDS ORDERED: BUPIVACAINE MPF W/EPI 0.25% 30 ML VIAL ONE (09:19)
[2022-11-15 16:00] VITALS: BP 100/55
--- NOTE | 2022-11-15 17:10 | NUR ---
TYPEWRITER TESTER NOTE PATIENT IS NOT TALKING, BUT IS STILL TAKING MEDICATION AND EATING ALL MEALS. VITALS ARE NORMAL.
--- NOTE | 2022-11-15 17:30 | NUR ---
EARLY CHILDHOOD DIRECTOR NOTE PATIENT REFUSED UA.
[2022-11-15 19:35] VITALS: BP 107/61
--- NOTE | 2022-11-15 19:44 | NUR ---
noc rn opening received patient in bed awake but non-verbal, guarded . no s/s of apparent distress in room air. no c/o at this time. will do Q15 visual checks and rounding with staff to ensure patient safety.
[2022-11-15] MEDS: LORAZEPAM 0.5 MG TABLET PO PRN (22:03)
--- NOTE | 2022-11-15 22:09 | NUR ---
noc rn note Patient woke up, noted to be shaking a lot. Per Shaniqua Charge nurse, okay to give Ativan for patient for now. Given Ativan 0.5 tab as ordered PRN. will monitor.
--- NOTE | 2022-11-16 05:15 | NUR ---
noc rn note Urine, clean catch collected and sent to lab at this time.
[2022-11-16 05:47] LABS: BILIRUBIN,URINE NEGATIVE (NEGATIVE); COLOR,URINE YELLOW (YELLOW); LEUKOCYTE ESTERASE ,URINE 3+ (NEGATIVE); NITRITE, URINE POSITIVE (NEGATIVE); PH,URINE 6.5 (5.0-8.0); PROTEIN,URINE 2+ mg/dl (NEGATIVE); UGLUCOSE NEGATIVE (NEGATIVE); UROBILINOGEN,URINE 0.2 EU/dL (0.2)
[2022-11-16 05:55] LABS: BACTERIA,URINE Many /HPF (None Seen); SQUAMOUS EPITHELIAL CELL,UR Few /HPF (None Seen); WBC,URINE TOO NUMEROUS TO COUN /HPF (0-3)
[2022-11-16 08:00] VITALS: BP 115/79
[2022-11-16] MEDS: ENSURE ENLIVE CHOC 237 ML CAN PO SCH ×3 (08:46→17:15)
[2022-11-16] MEDS: DIVALPROEX SODIUM 125 MG CAP.SPRINK PO SCH ×4 (08:47→16:23)
[2022-11-16] MEDS: OLANZAPINE 2.5 MG TABLET PO SCH ×3 (08:47→16:23)
[2022-11-16] MEDS: MEGESTROL ACETATE 40 MG TABLET PO SCH ×2 (08:47→16:23)
[2022-11-16] MEDS: DOCUSATE SODIUM 100 MG CAPSULE PO SCH (08:47)
--- NOTE | 2022-11-16 13:00 | NUR ---
RN NOTE NEW ORDER OF DEPAKOTE 250 MG NOT ADMINISTERED, DEPAKOTE 125 MG ALREADY ADMINISTERED TO PATIENT. WILL GIVE NEXT SCHEDULED DOSE OF DEPAKOTE 250 MG @1700. AWARE.
[2022-11-16 16:00] VITALS: BP 136/72
--- NOTE | 2022-11-16 18:22 | NUR ---
RN NOTE PATIENT IN BED ASLEEP. NO SIGNS OF ACUTE DISTRESS NOTED. STABLE ON ROOM AIR, BREATHING EVEN AND UNLABORED. PATIENT WITH FLAT AFFECT, LABILE MOOD, SELECTIVELY MUTE AT TIMES. ALL DUE MEDS GIVEN, TOLERATED WELL, COMPLIANT WITH MEDS. NEEDS MODERATE ASSIST WITH ADL'S. SAFETY MEASURE MAINTAINED. WILL ENDORSE TO NEXT SHIFT FOR CONTINUITY OF CARE.
--- NOTE | 2022-11-16 19:40 | NUR ---
NOC RN OPENING NOTE RECEIVED PATIENT IN BED, ASLEEP BUT EASY TO AROUSE AND RESPONSIVE. AFEBRILE AND NOT IN ANY FORM OF ACUTE DISTRESS. BREATHING EVEN AND NON LABORED. NO BEHAVIOR ISSUES NOTED AT THIS TIME. SAFETY MEASURES IN PLACE. KEPT BED IN LOCKED AND IN LOW POSITION. SIDE RAILS UP X2.
[2022-11-16 20:05] VITALS: BP 133/69
[2022-11-16] MEDS: OLANZAPINE 10 MG TABLET PO SCH (21:31)
[2022-11-16] MEDS ORDERED: OLANZAPINE 10 MG TABLET PO SCH (22:00)
[2022-11-17 08:00] VITALS: BP 118/69
[2022-11-17] MEDS: DOCUSATE SODIUM 100 MG CAPSULE PO SCH (08:24)
[2022-11-17] MEDS: ENSURE ENLIVE CHOC 237 ML CAN PO SCH ×3 (08:24→16:35)
[2022-11-17] MEDS: DIVALPROEX SODIUM 125 MG CAP.SPRINK PO SCH ×3 (08:25→16:34)
[2022-11-17] MEDS: OLANZAPINE 2.5 MG TABLET PO SCH ×3 (08:25→16:34)
[2022-11-17] MEDS: MEGESTROL ACETATE 40 MG TABLET PO SCH ×2 (08:25→16:35)
--- NOTE | 2022-11-17 09:49 | NUR ---
Court Notification: SW attempted to contact pt's sister Chelsie ([phone]) and left a voicemail of [phone] hearing today.
--- NOTE | 2022-11-17 09:49 | NUR ---
Court Notification: Pt's court for 5250 was today and it was upheld for GD.
[2022-11-17 16:00] VITALS: BP 169/90
--- NOTE | 2022-11-17 17:17 | NUR ---
RN-NOTES PATIENT IN THE DAY ROOM UP IN THE NADYA CHAIR, AWAKE,A/OX1,GUARDED,MINIMAL INTERACTIONS WITH STAFF. NO ACUTE DISTRESS NOTED.COMPLIANT WITH MEDICATIONS.NEEDS MAXIMUM ASSIST WITH ADL'S.ALL NEEDS ATTENDED AND ANTICIPATED.WILL CONT.MONITORING FOR SAFETY AND BEHAVIOR. WILL ENDORSE TO INCOMING SHIFT FOR THE CONTINUITY OF CARE.
[2022-11-17 20:00] VITALS: BP 161/87
[2022-11-17] MEDS: TEMAZEPAM 7.5 MG CAPSULE PO PRN (20:39)
[2022-11-17] MEDS: OLANZAPINE 10 MG TABLET PO SCH (20:39)
[2022-11-18 06:55] LABS: BASOPHILS # (AUTO) 0.1 K/uL (0.0-0.2); BASOPHILS % (AUTO) 0.6 % (0.0-2.0); EOSINOPHILS % (AUTO) 0.8 % (0.0-6.0); HEMATOCRIT 40 % (33-45); HEMOGLOBIN 13.5 g/dL (11.5-14.8); LYMPHOCYTES # (AUTO) 1.6 K/uL (0.8-4.8); LYMPHOCYTES % (AUTO) 16.4 % (20.0-44.0); MEAN CORPUSCULAR HGB CONC 34 g/dl (31.0-36.0); MEAN CORPUSCULAR VOLUME 92 fL (82-100); MONOCYTES # (AUTO) 0.8 K/uL (0.1-1.30); MONOCYTES % (AUTO) 7.7 % (2.0-12.0); NEUTROPHILS # (AUTO) 7.4 K/uL (1.8-8.9); NEUTROPHILS % (AUTO) 74.5 % (43.0-81.0); PLATELET COUNT (AUTO) 290 K/uL (150-450); RED BLOOD CELL COUNT(AUTO) 4.35 MIL/uL (4.0-5.2)
[2022-11-18 07:33] LABS: ALBUMIN 3.2 g/dL (3.4-5.0); BILIRUBIN,TOTAL 0.3 mg/dL (0.2-1.0); CALCIUM, SERUM 9.9 mg/dL (8.5-10.1); CREATININE 0.9 mg/dL (0.6-1.3); TOTAL PROTEIN, SERUM 7.4 g/dL (6.4-8.2)
[2022-11-18 08:00] VITALS: BP 116/80
[2022-11-18] MEDS: DOCUSATE SODIUM 100 MG CAPSULE PO SCH (08:36)
[2022-11-18] MEDS: OLANZAPINE 2.5 MG TABLET PO SCH ×2 (08:36→16:09)
[2022-11-18] MEDS: DIVALPROEX SODIUM 125 MG CAP.SPRINK PO SCH ×3 (08:36→16:07)
[2022-11-18] MEDS: MEGESTROL ACETATE 40 MG TABLET PO SCH ×2 (08:36→16:07)
[2022-11-18] MEDS: ENSURE ENLIVE 237 ML LIQUID (VANILLA) PO SCH ×3 (08:36→16:07)
[2022-11-18] MEDS: SULFAMETH/TRIMETH 800/160 MG 1 UDTAB TABLET PO SCH ×2 (11:25→21:37)
[2022-11-18 15:50] LABS: BILIRUBIN,URINE NEGATIVE (NEGATIVE); COLOR,URINE YELLOW (YELLOW); LEUKOCYTE ESTERASE ,URINE 3+ (NEGATIVE); NITRITE, URINE POSITIVE (NEGATIVE); PROTEIN,URINE TRACE mg/dl (NEGATIVE); UGLUCOSE NEGATIVE (NEGATIVE); UROBILINOGEN,URINE 0.2 EU/dL (0.2)
[2022-11-18 16:00] VITALS: BP 137/75
[2022-11-18 16:12] LABS: BACTERIA,URINE 3+ /HPF (None Seen); SQUAMOUS EPITHELIAL CELL,UR 0-2 /HPF (None Seen); WBC,URINE 81-100 /HPF (0-3)
--- NOTE | 2022-11-18 17:19 | NUR ---
RN-NOTES PATIENT IN THE DAY ROOM UP IN THE NADYA CHAIR, AWAKE,A/OX1,GUARDED,MINIMAL INTERACTIONS WITH STAFF.NO PARTICIPATIONS IN THE GROUP.NO ACUTE DISTRESS NOTED.COMPLIANT WITH MEDICATIONS.NEEDS MAXIMUM ASSIST WITH ADL'S.ALL NEEDS ATTENDED AND ANTICIPATED.WILL CONT.MONITORING FOR SAFETY AND BEHAVIOR. WILL ENDORSE TO INCOMING SHIFT FOR THE CONTINUITY OF CARE.
--- NOTE | 2022-11-18 19:50 | NUR ---
RN OPENING NOTE RECEIVED PATIENT SITTING IN NADYA CHAIR IN HALLWAY, PATIENT SELECTIVELY MUTE, MINIMAL RESPONSE TO NO RESPONSE WHEN ASKED QUESTIONS. PATIENT ALERT/ORIENTED TO NAME. PATIENT STABLE ON RA, NO S/S OF DISTRESS OR SOB NOTED, BREATHING EVEN AND UNLABORED. SAFETY MEASURES IN PLACE: WILL CONTINUE TO MONITOR PATIENT Q15 MINS
[2022-11-18 20:00] VITALS: BP 141/80
[2022-11-18] MEDS: OLANZAPINE 10 MG TABLET PO SCH (21:37)
--- NOTE | 2022-11-19 06:22 | NUR ---
RN CLOSING NOTE PATIENT ALERT/ORIENTED X 1, PT CURRENTLY IN NADYA CHAIR IN HALLWAY. PATIENT DID NOT SPEAK THIS SHIFT WHEN SPOKEN TO, BUT MAKES EYE CONTACT WHEN NAME IS CALLED. PATIENT STABLE ON RA, NO S/S OF DISTRESS OR SOB NOTED, BREATHING EVEN AND UNLABORED. PATIENT WAS MED COMPLIANT. NO AGGRESSIVE BEHAVIOR THIS SHIFT. PATIENT HAS UNSTEADY GAIT. SAFETY MEASURES MAINTAINED, Q15 MIN SAFETY CHECKS. WILL ENDORSE TO DAYSHIFT RN FOR CONTINUITY OF CARE
[2022-11-19 08:00] VITALS: BP 150/86
[2022-11-19] MEDS: DOCUSATE SODIUM 100 MG CAPSULE PO SCH (08:37)
[2022-11-19] MEDS: OLANZAPINE 2.5 MG TABLET PO SCH ×2 (08:38→16:18)
[2022-11-19] MEDS: SULFAMETH/TRIMETH 800/160 MG 1 UDTAB TABLET PO SCH ×2 (08:38→21:59)
[2022-11-19] MEDS: MEGESTROL ACETATE 40 MG TABLET PO SCH ×2 (08:39→16:18)
[2022-11-19] MEDS: DIVALPROEX SODIUM 125 MG CAP.SPRINK PO SCH ×3 (08:39→16:18)
[2022-11-19] MEDS: ENSURE ENLIVE 237 ML LIQUID (VANILLA) PO SCH ×3 (08:39→16:18)
[2022-11-19 08:41] LABS: THYROID STIMULATING HORMONE 0.8 uIU/mL (0.358-3.74)
[2022-11-19 16:00] VITALS: BP 113/65
--- NOTE | 2022-11-19 17:40 | NUR ---
RN-NOTES PATIENT LYING IN BED AWAKE,A/OX1,GUARDED,MINIMAL INTERACTIONS WITH STAFF.NO PARTICIPATIONS IN THE GROUP.NO ACUTE DISTRESS NOTED.COMPLIANT WITH MEDICATIONS.GOOD JACKLYN CARE RENDERED.NEEDS MAXIMUM ASSIST WITH ADL'S.ALL NEEDS ATTENDED AND ANTICIPATED.WILL CONT.MONITORING FOR SAFETY AND BEHAVIOR. WILL ENDORSE TO INCOMING SHIFT FOR THE CONTINUITY OF CARE.
[2022-11-19 20:00] VITALS: BP 134/83
[2022-11-19] MEDS: OLANZAPINE 10 MG TABLET PO SCH (21:59)
[2022-11-19] MEDS: TEMAZEPAM 7.5 MG CAPSULE PO PRN (23:45)
[2022-11-20 07:45] LABS: CALCIUM, SERUM 9.5 mg/dL (8.5-10.1); CREATININE 1.2 mg/dL (0.6-1.3); MAGNESIUM 2.4 mg/dL (1.8-2.4); PHOSPHORUS 3.6 mg/dL (2.5-4.9); POTASSIUM 4.4 mmol/L (3.5-5.1)
[2022-11-20 08:00] VITALS: BP 134/79
[2022-11-20 08:36] LABS: BASOPHILS % (AUTO) 0.3 % (0.0-2.0); EOSINOPHILS % (AUTO) 0.6 % (0.0-6.0); HEMATOCRIT 40 % (33-45); HEMOGLOBIN 13.1 g/dL (11.5-14.8); LYMPHOCYTES # (AUTO) 2.2 K/uL (0.8-4.8); LYMPHOCYTES % (AUTO) 23.1 % (20.0-44.0); MEAN CORPUSCULAR HGB CONC 33 g/dl (31.0-36.0); MEAN CORPUSCULAR VOLUME 91 fL (82-100); MONOCYTES # (AUTO) 0.9 K/uL (0.1-1.30); MONOCYTES % (AUTO) 9.8 % (2.0-12.0); NEUTROPHILS # (AUTO) 6.4 K/uL (1.8-8.9); NEUTROPHILS % (AUTO) 66.2 % (43.0-81.0); PLATELET COUNT (AUTO) 298 K/uL (150-450); RED BLOOD CELL COUNT(AUTO) 4.34 MIL/uL (4.0-5.2); WHITE BLOOD COUNT (AUTO) 9.7 K/uL (4.3-11.0)
[2022-11-20] MEDS: DOCUSATE SODIUM 100 MG CAPSULE PO SCH (09:29)
[2022-11-20] MEDS: SULFAMETH/TRIMETH 800/160 MG 1 UDTAB TABLET PO SCH ×2 (09:29→21:16)
[2022-11-20] MEDS: OLANZAPINE 2.5 MG TABLET PO SCH ×2 (09:30→18:09)
[2022-11-20] MEDS: MEGESTROL ACETATE 40 MG TABLET PO SCH ×2 (09:30→18:08)
[2022-11-20] MEDS: ENSURE ENLIVE 237 ML LIQUID (VANILLA) PO SCH ×3 (09:30→17:00)
[2022-11-20] MEDS: DIVALPROEX SODIUM 125 MG CAP.SPRINK PO SCH ×3 (09:30→18:08)
[2022-11-20 16:00] VITALS: BP 157/90
[2022-11-20 20:16] VITALS: BP 135/91
[2022-11-20] MEDS: LORAZEPAM 0.5 MG TABLET PO PRN (21:16)
[2022-11-20] MEDS: OLANZAPINE 10 MG TABLET PO SCH (21:16)
[2022-11-21 08:00] VITALS: BP 113/67
[2022-11-21] MEDS: OLANZAPINE 2.5 MG TABLET PO SCH ×2 (08:38→17:40)
[2022-11-21] MEDS: MEGESTROL ACETATE 40 MG TABLET PO SCH ×2 (08:38→17:41)
[2022-11-21] MEDS: DIVALPROEX SODIUM 125 MG CAP.SPRINK PO SCH ×3 (08:38→17:40)
[2022-11-21] MEDS: SULFAMETH/TRIMETH 800/160 MG 1 UDTAB TABLET PO SCH ×2 (08:38→21:12)
[2022-11-21] MEDS: DOCUSATE SODIUM 100 MG CAPSULE PO SCH (08:38)
[2022-11-21] MEDS: ENSURE ENLIVE 237 ML LIQUID (VANILLA) PO SCH ×3 (09:00→17:33)
[2022-11-21] MEDS: BENZTROPINE MESYLATE (1 MG) 1 MG TABLET PO SCH ×2 (12:17→17:40)
[2022-11-21 16:00] VITALS: BP 143/86
[2022-11-21 20:00] VITALS: BP 120/94
[2022-11-21] MEDS: OLANZAPINE 10 MG TABLET PO SCH (21:12)
[2022-11-22 08:00] VITALS: BP 105/64
[2022-11-22] MEDS: DIVALPROEX SODIUM 125 MG CAP.SPRINK PO SCH ×3 (09:14→16:39)
[2022-11-22] MEDS: DOCUSATE SODIUM 100 MG CAPSULE PO SCH (09:15)
[2022-11-22] MEDS: OLANZAPINE 2.5 MG TABLET PO SCH ×2 (09:15→16:38)
[2022-11-22] MEDS: MEGESTROL ACETATE 40 MG TABLET PO SCH ×2 (09:15→16:42)
[2022-11-22] MEDS: BENZTROPINE MESYLATE (1 MG) 1 MG TABLET PO SCH ×3 (09:15→16:39)
[2022-11-22] MEDS: SULFAMETH/TRIMETH 800/160 MG 1 UDTAB TABLET PO SCH ×2 (09:15→21:06)
[2022-11-22] MEDS: ENSURE ENLIVE 237 ML LIQUID (VANILLA) PO SCH ×3 (09:48→16:42)
[2022-11-22] MEDS: LORAZEPAM 0.5 MG TABLET PO SCH ×2 (14:24→21:06)
[2022-11-22 16:00] VITALS: BP 133/86
--- NOTE | 2022-11-22 17:56 | NUR ---
RN-NOTES PATIENT IN THE DAY ROOM UP IN THE NADYA CHAIR, AWAKE,A/OX1,GUARDED,MINIMAL INTERACTIONS WITH STAFF.NO PARTICIPATIONS IN THE GROUP.NO ACUTE DISTRESS NOTED.COMPLIANT WITH MEDICATIONS.GOOD JACKLYN CARE RENDERED.NEEDS MAXIMUM ASSIST WITH ADL'S.ALL NEEDS ATTENDED AND ANTICIPATED.WILL CONT.MONITORING FOR SAFETY AND BEHAVIOR. WILL ENDORSE TO INCOMING SHIFT FOR THE CONTINUITY OF CARE.
[2022-11-22 21:03] VITALS: BP 143/94
[2022-11-22] MEDS: OLANZAPINE 10 MG TABLET PO SCH (21:06)
[2022-11-23] MEDS: LORAZEPAM 0.5 MG TABLET PO SCH ×3 (05:00→21:45)
--- NOTE | 2022-11-23 05:44 | NUR ---
RN note: Patient scheduled Ativan 0.5 mg PO at 05:00 was not given due to patient still asleep. No s/s of tremors/anxiety noted.No s/s of acute distress noted.Will continue to monitor q15 min rounds for safety.
[2022-11-23 08:00] VITALS: BP 99/58
[2022-11-23] MEDS: OLANZAPINE 2.5 MG TABLET PO SCH ×2 (09:00→17:04)
[2022-11-23] MEDS: DIVALPROEX SODIUM 125 MG CAP.SPRINK PO SCH ×3 (09:00→17:04)
[2022-11-23] MEDS: ENSURE ENLIVE 237 ML LIQUID (VANILLA) PO SCH ×3 (09:00→17:05)
[2022-11-23] MEDS: BENZTROPINE MESYLATE (1 MG) 1 MG TABLET PO SCH ×4 (09:00→21:46)
[2022-11-23] MEDS: SULFAMETH/TRIMETH 800/160 MG 1 UDTAB TABLET PO SCH ×2 (14:31→21:45)
[2022-11-23] MEDS: DOCUSATE SODIUM 100 MG CAPSULE PO SCH (14:31)
[2022-11-23] MEDS: MEGESTROL ACETATE 40 MG TABLET PO SCH ×2 (14:33→17:05)
[2022-11-23 16:00] VITALS: BP 105/59
[2022-11-23 21:10] VITALS: BP 125/70
[2022-11-23] MEDS: OLANZAPINE 10 MG TABLET PO SCH (21:46)
[2022-11-24] MEDS: LORAZEPAM 0.5 MG TABLET PO SCH ×4 (05:41→20:52)
[2022-11-24 07:17] LABS: BASOPHILS % (AUTO) 0.5 % (0.0-2.0); EOSINOPHILS % (AUTO) 1.8 % (0.0-6.0); HEMATOCRIT 34 % (33-45); HEMOGLOBIN 11.9 g/dL (11.5-14.8); LYMPHOCYTES # (AUTO) 2.2 K/uL (0.8-4.8); LYMPHOCYTES % (AUTO) 29.5 % (20.0-44.0); MEAN CORPUSCULAR HGB CONC 35 g/dl (31.0-36.0); MEAN CORPUSCULAR VOLUME 92 fL (82-100); MONOCYTES # (AUTO) 0.7 K/uL (0.1-1.30); MONOCYTES % (AUTO) 8.8 % (2.0-12.0); NEUTROPHILS # (AUTO) 4.4 K/uL (1.8-8.9); NEUTROPHILS % (AUTO) 59.4 % (43.0-81.0); PLATELET COUNT (AUTO) 281 K/uL (150-450); RED BLOOD CELL COUNT(AUTO) 3.71 MIL/uL (4.0-5.2); WHITE BLOOD COUNT (AUTO) 7.5 K/uL (4.3-11.0)
[2022-11-24 07:27] LABS: ALBUMIN 2.4 g/dL (3.4-5.0); BILIRUBIN,TOTAL 0.2 mg/dL (0.2-1.0); CALCIUM, SERUM 8.9 mg/dL (8.5-10.1); CREATININE 1.1 mg/dL (0.6-1.3); POTASSIUM 4.1 mmol/L (3.5-5.1); TOTAL PROTEIN, SERUM 5.9 g/dL (6.4-8.2)
[2022-11-24 08:00] VITALS: BP 95/61
[2022-11-24] MEDS: DOCUSATE SODIUM 100 MG CAPSULE PO SCH (09:03)
[2022-11-24] MEDS: DIVALPROEX SODIUM 125 MG CAP.SPRINK PO SCH ×3 (09:03→16:48)
[2022-11-24] MEDS: MEGESTROL ACETATE 40 MG TABLET PO SCH ×2 (09:03→16:52)
[2022-11-24] MEDS: OLANZAPINE 2.5 MG TABLET PO SCH ×2 (09:03→16:47)
[2022-11-24] MEDS: BENZTROPINE MESYLATE (1 MG) 1 MG TABLET PO SCH ×4 (09:03→21:53)
[2022-11-24] MEDS: SULFAMETH/TRIMETH 800/160 MG 1 UDTAB TABLET PO SCH ×2 (09:06→20:52)
[2022-11-24] MEDS: ENSURE ENLIVE 237 ML LIQUID (VANILLA) PO SCH ×3 (09:39→16:51)
[2022-11-24 16:00] VITALS: BP 124/71
--- NOTE | 2022-11-24 19:30 | NUR ---
GPS RN NOTES RECEIVED OUT OF BED,SITTING ON NADYA CHAIR,A/O X1,CONFUSED,LABILE,FORGETFUL,ALWAYS REPEATING OF WHAT SHE SAID,FALL RISK,FREQUENT CHECK INITIATED.MONITOR NEEDS AND BEHAVIOR.
[2022-11-24 20:00] VITALS: BP 127/77
[2022-11-24] MEDS: OLANZAPINE 10 MG TABLET PO SCH (21:54)
[2022-11-24] MEDS: TEMAZEPAM 7.5 MG CAPSULE PO PRN (23:51)
--- NOTE | 2022-11-24 23:51 | NUR ---
GPS RN NOTES FEELING SLEEPY,ASKED FOR SLEEPING PILL,GIVEN RESTORIL 7.5MG PO THIS TIME AND PUT BACK TO BED PER PATIENT REQUEST.
[2022-11-25 08:00] VITALS: BP 99/55
[2022-11-25] MEDS: DOCUSATE SODIUM 100 MG CAPSULE PO SCH (08:38)
[2022-11-25] MEDS: LORAZEPAM 0.5 MG TABLET PO SCH ×3 (08:38→17:10)
[2022-11-25] MEDS: SULFAMETH/TRIMETH 800/160 MG 1 UDTAB TABLET PO SCH (08:38)
[2022-11-25] MEDS: DIVALPROEX SODIUM 125 MG CAP.SPRINK PO SCH ×3 (08:38→17:10)
[2022-11-25] MEDS: BENZTROPINE MESYLATE (1 MG) 1 MG TABLET PO SCH ×3 (08:39→17:10)
[2022-11-25] MEDS: ENSURE ENLIVE 237 ML LIQUID (VANILLA) PO SCH ×3 (08:39→17:11)
[2022-11-25] MEDS: OLANZAPINE 2.5 MG TABLET PO SCH ×2 (08:39→17:10)
[2022-11-25] MEDS: MEGESTROL ACETATE 40 MG TABLET PO SCH ×2 (08:39→17:11)
[2022-11-25 16:00] VITALS: BP 125/78
--- NOTE | 2022-11-25 19:54 | NUR ---
PHYSICAL EDUCATION SPECIALIST NOTES. Received patient in bed asleep. No sign of disrtress or discomfort noted. Will Continue to monitor.
[2022-11-25 20:46] VITALS: BP 103/61
[2022-11-25] MEDS: OLANZAPINE 10 MG TABLET PO SCH (21:57)
[2022-11-26 08:00] VITALS: BP 100/61
[2022-11-26] MEDS: DIVALPROEX SODIUM 125 MG CAP.SPRINK PO SCH ×3 (08:16→17:01)
[2022-11-26] MEDS: BENZTROPINE MESYLATE (1 MG) 1 MG TABLET PO SCH ×3 (08:16→17:02)
[2022-11-26] MEDS: DOCUSATE SODIUM 100 MG CAPSULE PO SCH (08:16)
[2022-11-26] MEDS: ENSURE ENLIVE 237 ML LIQUID (VANILLA) PO SCH ×3 (08:16→16:59)
[2022-11-26] MEDS: OLANZAPINE 2.5 MG TABLET PO SCH ×2 (08:16→17:02)
[2022-11-26] MEDS: MEGESTROL ACETATE 40 MG TABLET PO SCH ×2 (08:34→17:01)
[2022-11-26] MEDS: LORAZEPAM 0.5 MG TABLET PO SCH ×3 (08:35→17:01)
[2022-11-26 16:00] VITALS: BP 127/81
--- NOTE | 2022-11-26 19:30 | NUR ---
RN OPENING NOTES RECEIVED PATIENT IN THE NADYA CHAIR. PATIENT IS A/O TIMES 1. CONFUSED. NO PAIN NOTED. NO DISTRESS NOTED. NO DISCOMFORT NOTED. ABLE TO MAKE NEEDS KNOWN. CALM AND COMFORTABLE. NO BEHAVIORAL ISSUE NOTED AT THIS TIME. WILL CONTINUE WITH PLAN OF CARE.
[2022-11-26 20:15] VITALS: BP 132/82
[2022-11-26] MEDS: OLANZAPINE 10 MG TABLET PO SCH (21:21)
[2022-11-27] MEDS: LORAZEPAM 0.5 MG TABLET PO PRN (04:16)
--- NOTE | 2022-11-27 04:21 | NUR ---
RN NOTES PRN ATIVAN 0.5 MG GIVEN FOR ANXIETY AT 0417 AM.
--- NOTE | 2022-11-27 06:31 | NUR ---
RN CLOSING NOTES PATIENT AWAKE IN THE NADYA CHAIR. PATIENT IS A/O TIMES 1. CONFUSED. NO PAIN NOTED. NO DISTRESS NOTED. PATIENT SLEPT 3 HOURS ONLY DURING SHIFT. NO DISCOMFORT NOTED. ABLE TO MAKE NEEDS KNOWN. CALM AND COMFORTABLE. NO BEHAVIORAL ISSUE NOTED AT THIS TIME. WILL ENDORSE TO INCOMING SHIFT NURSE FOR GRETCHEN.
[2022-11-27 08:00] VITALS: BP 135/83
[2022-11-27] MEDS: OLANZAPINE 2.5 MG TABLET PO SCH ×2 (09:24→17:36)
[2022-11-27] MEDS: DIVALPROEX SODIUM 125 MG CAP.SPRINK PO SCH ×3 (09:24→17:36)
[2022-11-27] MEDS: BENZTROPINE MESYLATE (1 MG) 1 MG TABLET PO SCH ×3 (09:24→17:35)
[2022-11-27] MEDS: DOCUSATE SODIUM 100 MG CAPSULE PO SCH (09:24)
[2022-11-27] MEDS: ENSURE ENLIVE 237 ML LIQUID (VANILLA) PO SCH ×3 (09:24→17:33)
[2022-11-27] MEDS: LORAZEPAM 0.5 MG TABLET PO SCH ×3 (09:24→17:35)
[2022-11-27] MEDS: MEGESTROL ACETATE 40 MG TABLET PO SCH ×2 (09:25→17:35)
[2022-11-27 16:00] VITALS: BP 117/67
--- NOTE | 2022-11-27 19:45 | NUR ---
GPS RN NOTE RECEIVED PATIENT SITTING ON NADYA CHAIR, IN HALLWAY. PT A/O X1, CONFUSED, LABILE, AND FORGETFUL. NO S/S OF PAIN OR DISCOMFORT OBSERVED. NO SOB, NO DISTRESS NOTED. FALL RISK. FREQUENT CHECK INITIATED. WILL CONTINUE TO MONITOR PT'S NEEDS AND BEHAVIOR.
[2022-11-27 20:01] VITALS: BP 113/74
[2022-11-27] MEDS: OLANZAPINE 10 MG TABLET PO SCH (22:13)
--- NOTE | 2022-11-28 06:50 | NUR ---
RN CLOSING NOTE LEFT PATIENT SLEEPING IN BED. PATIENT IS A/O TIMES 1. CONFUSED. NO PAIN NOTED. NO DISTRESS NOTED. NO DISCOMFORT NOTED. ABLE TO MAKE NEEDS KNOWN. CALM AND COMFORTABLE. NO BEHAVIORAL ISSUE NOTED AT THIS TIME. WILL ENDORSE TO INCOMING SHIFT NURSE FOR GRETCHEN.
[2022-11-28 08:00] VITALS: BP 100/60
[2022-11-28] MEDS: DOCUSATE SODIUM 100 MG CAPSULE PO SCH (08:24)
[2022-11-28] MEDS: DIVALPROEX SODIUM 125 MG CAP.SPRINK PO SCH ×3 (08:24→16:48)
[2022-11-28] MEDS: OLANZAPINE 2.5 MG TABLET PO SCH ×2 (08:25→16:48)
[2022-11-28] MEDS: LORAZEPAM 0.5 MG TABLET PO SCH ×3 (08:25→16:48)
[2022-11-28] MEDS: ENSURE ENLIVE 237 ML LIQUID (VANILLA) PO SCH ×3 (08:25→16:48)
[2022-11-28] MEDS: BENZTROPINE MESYLATE (1 MG) 1 MG TABLET PO SCH ×3 (08:26→16:48)
[2022-11-28] MEDS: MEGESTROL ACETATE 40 MG TABLET PO SCH ×2 (08:43→16:48)
--- NOTE | 2022-11-28 14:35 | NUR ---
RN-CO: PATIENT IS CONFUSED, NEEDS MODERATE TO MAX ASSIST IN ADL. SHE NEEDS TO BE FED. NO S/S OF DISCOMFORTS NOTED. AT TIMES SHE MUMBLES TO HERSELF AND HAS PERIODS OF RESTLESSNESS. NO AGGRESSION NOTED. WE WILL CONTINUE TO MONITOR.
[2022-11-28 16:00] VITALS: BP 128/77
[2022-11-28 20:07] VITALS: BP 138/76
[2022-11-28] MEDS: OLANZAPINE 10 MG TABLET PO SCH (21:40)
[2022-11-29 07:25] LABS: BASOPHILS % (AUTO) 0.4 % (0.0-2.0); EOSINOPHILS % (AUTO) 1.4 % (0.0-6.0); HEMATOCRIT 34 % (33-45); HEMOGLOBIN 11.2 g/dL (11.5-14.8); LYMPHOCYTES # (AUTO) 2.4 K/uL (0.8-4.8); LYMPHOCYTES % (AUTO) 24.1 % (20.0-44.0); MEAN CORPUSCULAR HGB CONC 33 g/dl (31.0-36.0); MEAN CORPUSCULAR VOLUME 94 fL (82-100); MONOCYTES % (AUTO) 9.9 % (2.0-12.0); NEUTROPHILS # (AUTO) 6.3 K/uL (1.8-8.9); NEUTROPHILS % (AUTO) 64.2 % (43.0-81.0); PLATELET COUNT (AUTO) 339 K/uL (150-450); RED BLOOD CELL COUNT(AUTO) 3.64 MIL/uL (4.0-5.2); WHITE BLOOD COUNT (AUTO) 9.8 K/uL (4.3-11.0)
[2022-11-29 07:39] LABS: ALBUMIN 2.4 g/dL (3.4-5.0); BILIRUBIN,TOTAL 0.2 mg/dL (0.2-1.0); CALCIUM, SERUM 8.9 mg/dL (8.5-10.1); POTASSIUM 4.1 mmol/L (3.5-5.1); TOTAL PROTEIN, SERUM 5.7 g/dL (6.4-8.2)
[2022-11-29 08:00] VITALS: BP 105/67
[2022-11-29] MEDS: BENZTROPINE MESYLATE (1 MG) 1 MG TABLET PO SCH ×3 (08:32→16:52)
[2022-11-29] MEDS: LORAZEPAM 0.5 MG TABLET PO SCH ×3 (08:33→16:52)
[2022-11-29] MEDS: DOCUSATE SODIUM 100 MG CAPSULE PO SCH (08:33)
[2022-11-29] MEDS: DIVALPROEX SODIUM 125 MG CAP.SPRINK PO SCH ×3 (08:33→16:52)
[2022-11-29] MEDS: ENSURE ENLIVE 237 ML LIQUID (VANILLA) PO SCH ×3 (08:34→16:55)
[2022-11-29] MEDS: MEGESTROL ACETATE 40 MG TABLET PO SCH ×2 (08:50→16:54)
[2022-11-29] MEDS: OLANZAPINE 2.5 MG TABLET PO SCH ×2 (08:50→16:54)
[2022-11-29 16:00] VITALS: BP 119/74
--- NOTE | 2022-11-29 18:01 | NUR ---
RN NOTES PATIENT SITTING IN THE DAY ROOM EATING DINNER WITH ASSISTANCE, COOPERATIVE, MEDICATION COMPLIANT, CONFUSED, NEEDS MODERATE TO MAX ASSIST IN ADL. NO S/S OF DISCOMFORTS NOTED. AT TIMES SHE MUMBLES TO HERSELF AND HAS PERIODS OF RESTLESSNESS. NO AGGRESSION NOTED. WE WILL CONTINUE TO MONITOR.
[2022-11-29 19:43] VITALS: BP 137/67
[2022-11-29 19:56] VITALS: BP 137/67
--- NOTE | 2022-11-29 21:00 | NUR ---
COVID SPECIMEN SENT TO LAB FOR DISCHARGE PLANNING.
[2022-11-29] MEDS: OLANZAPINE 10 MG TABLET PO SCH (21:21)
[2022-11-29] MEDS: TEMAZEPAM 7.5 MG CAPSULE PO PRN (23:01)
--- NOTE | 2022-11-29 23:05 | NUR ---
RN NOTE: INSOMNIA PATIENT IS UNABLE TO SLEEP, ANXIOUS AND RESTLESS. PRN RESTORIL 7.5 MG PO ADMINISTERED ORDERED BY MD. WILL CONTINUE TO MONITOR.
[2022-11-30 08:00] VITALS: BP 118/64
--- NOTE | 2022-11-30 08:24 | NUR ---
PATY Discharge Note: Patient will be discharged to [facility] [address] [facility], [place] [address] ([phone]). Please arrange ambulance transportation at 1PM. Spoke with Rhoda, Admin Coordinator at the facility who states they are ready to accept the patient today. PATY contacted pts sister Chelsie ([phone]) and left a voicemail. Patient is alert and oriented x1, is unable to plan for self-care at this time, however, is willing to accept care at [facility]. Patient denies any suicidal or homicidal ideation. Patient will follow-up at the facility with Dr. Bertrand (Psychiatrist) [address] [address]; ([phone]) and ([facility]) Dr. Hercules [address] [facility] [address], [place] [address]; ([phone]). Patient presents with euthymic mood and congruent affect.
[2022-11-30] MEDS: MEGESTROL ACETATE 40 MG TABLET PO SCH (08:32)
[2022-11-30] MEDS: BENZTROPINE MESYLATE (1 MG) 1 MG TABLET PO SCH ×2 (08:32→12:36)
[2022-11-30] MEDS: ENSURE ENLIVE 237 ML LIQUID (VANILLA) PO SCH ×2 (08:33→13:18)
[2022-11-30] MEDS: DOCUSATE SODIUM 100 MG CAPSULE PO SCH (08:33)
[2022-11-30] MEDS: OLANZAPINE 2.5 MG TABLET PO SCH (08:33)
[2022-11-30] MEDS: DIVALPROEX SODIUM 125 MG CAP.SPRINK PO SCH ×2 (08:33→12:35)
[2022-11-30] MEDS: LORAZEPAM 0.5 MG TABLET PO SCH ×2 (08:33→12:36)
--- NOTE | 2022-11-30 13:15 | NUR ---
NURSE NOTE: 57 YR OLD FEMALE DISCHARGED TO [facility] IN STABLE [place]. COMPLIANT WITH MEDS, COOPERATIVE WITH TREATMENT PLANS. PT DENIES SI/HI AND INSTRUCTED TO CALL 911 OR LET STAFF KNOW IF DEVELOPING SI/HI. BEHAVIOR IMPROVED, PSYCHIATRIC TX PLANS MET, MEDICAL TX PLANS DEFERRED FOR CONTINUAL MONITORING. DR STOVER DISCONTINUED HOLD. BOTH DR STOVER AND DR GAFFNEY CLEARED AND DISCHARGED PT. EDUCATED PT ABOUT AFTER CARE PLAN AND COPY PROVIDED. PT HAD PERSONAL BELONGING ON HER UPON DISCHARGE. MEDICATIONS RECONCILED WITH DR STOVER AND DR GAFFNEY. REPORT GIVEN TO DIVYA STOCK AT [facility] FOR CONTINUITY OF CARE. PT REFUSED TO SIGN DISCHARGE PAPERWORK. PT LEFT THE UNIT AT 1315 VIA AMBULANCE.
== END 2022-11-30 13:15 | DRG 885 ==
LOC: ER 11:33 → GPS 18:20
PROVIDERS: ADMIT Psychiatry & Neurology Psychosomatic Medicine; ATTEND Internal Medicine
DX: F25.0 Schizoaffective disorder, bipolar type (principal); F50.9 Eating disorder, unspecified; N39.0 Urinary tract infection, site not specified; E87.1 Hypo-osmolality and hyponatremia; G93.40 Encephalopathy, unspecified; E44.0 Moderate protein-calorie malnutrition; Z68.1 Body mass index [BMI] 19.9 or less, adult; F03.90 Unspecified dementia, unspecified severity, without behavioral disturbance, psychotic disturbance, mood disturbance, and anxiety; Z20.822 Contact with and (suspected) exposure to COVID-19; F29 Unspecified psychosis not due to a substance or known physiological condition; Z73.6 Limitation of activities due to disability; M62.81 Muscle weakness (generalized); E87.6 Hypokalemia; F41.9 Anxiety disorder, unspecified; F32.A Depression, unspecified; B96.20 Unspecified Escherichia coli [E. coli] as the cause of diseases classified elsewhere; D72.829 Elevated white blood cell count, unspecified; E88.09 Other disorders of plasma-protein metabolism, not elsewhere classified
CPT/HCPCS: 36415; 70450-TC; 80048-TC; 80053-TC; 80061-TC; 80076-TC; 80164-TC; 81001; 82607-TC; 82962-TC; 83735-TC; 84100-TC; 84443-TC; 85025-TC; 87081-TC; 87086-TC; 97110-TC; 97112-TC; 97116-TC; 97530-TC; C9803; G0480; J3490

== ENCOUNTER 2023-02-24 16:47 | Inpatient (IN) | payer MEDICARE, OTHER ==
[~2023-02-24] VITALS: Ht 160 cm; Wt 45.8 kg
[~2023-02-24 16:47] MED LIST changes: +ACET325T53 PO; -ATOR40TA PO; +BISA10SU11 RC; +CRAN400C PO; +DOCU-141 PO; -DOCU100C36 PO; -DOXY100C2 PO; +LACT-58 PO; +MAGN400O6 PO; +MEGE40TA7 PO; -METR70GE17 VG; +NA P133E RC; +TEMA15CA5 PO
[2023-02-24] MEDS ORDERED: IV NS 0.9% 1,000 ML BAG IV ONE (17:00)
--- NOTE | 2023-02-24 17:10 | NUR ---
JOSE MARTIN FROM [facility] FOR NOTED LOW B/P AND POSITIVE COVID TEST . AOX2. SHE CLAIMS SHE CAME FROM A HOSPITAL FOR 3WKS. PT PUT ON BEDSIDE MONITOR, MADE COMFORTABLE
[2023-02-24] MEDS ORDERED: ZINC50TA69 PO (17:23)
[2023-02-24] MEDS ORDERED: DIVA125C2 PO (17:23)
[2023-02-24] MEDS ORDERED: LORA-259 PO (17:23)
[2023-02-24] MEDS ORDERED: ASCO-352 PO (17:23)
[2023-02-24] MEDS ORDERED: BENZ0.5T43 PO (17:23)
[2023-02-24] MEDS ORDERED: OLAN5TAB3 PO (17:23)
[2023-02-24] MEDS ORDERED: OLAN10TA3 PO (17:23)
[2023-02-24] MEDS ORDERED: MAGNESIUM HYDROXIDE 30 ML UDC PO PRN (17:30)
[2023-02-24] MEDS ORDERED: ONDANSETRON HCL/PF 4 MG/2 ML VIAL IVP PRN (17:30)
[2023-02-24] MEDS ORDERED: MAG HYDROX/AL HYDROX/SIMETH 30 ML UDC PO PRN (17:30)
[2023-02-24] MEDS ORDERED: TEMAZEPAM 15 MG CAPSULE PO PRN (17:30)
[2023-02-24] MEDS ORDERED: HYDROCODONE/APAP 5/325MG TABLET PO PRN (17:30)
[2023-02-24] MEDS ORDERED: ACETAMINOPHEN 325 MG TABLET PO PRN (17:30)
[2023-02-24] MEDS ORDERED: HYDROCODONE/APAP 10/325MG TABLET PO PRN (17:30)
[2023-02-24] MEDS ORDERED: Z GUARD REMEDY 4 OZ OINT TP PRN (17:30)
[2023-02-24] MEDS ORDERED: IV NS 0.9% 1,000 ML IV PRN (17:30)
--- NOTE | 2023-02-24 17:30 | NUR ---
MANAGING EDITOR AT BEDSIDE
--- NOTE | 2023-02-24 17:41 | NUR ---
PT ASKED FOR A BEDPAN TO PEE. SHE WEARS A DIAPHER
--- NOTE | 2023-02-24 17:48 | NUR ---
MOVE SHEET SUBMITTED.
[2023-02-24] MEDS ORDERED: AZITHROMYCIN 250 MG TABLET PO ONE (18:00)
[2023-02-24 18:09] LABS: BASOPHILS # (AUTO) 0.1 K/uL (0.0-0.2); BASOPHILS % (AUTO) 0.6 % (0.0-2.0); HEMATOCRIT 34 % (33-45); HEMOGLOBIN 11.2 g/dL (11.5-14.8); LYMPHOCYTES # (AUTO) 1.7 K/uL (0.8-4.8); LYMPHOCYTES % (AUTO) 16.5 % (20.0-44.0); MEAN CORPUSCULAR HGB CONC 33 g/dl (31.0-36.0); MEAN CORPUSCULAR VOLUME 95 fL (82-100); MONOCYTES # (AUTO) 1.5 K/uL (0.1-1.30); MONOCYTES % (AUTO) 14.3 % (2.0-12.0); NEUTROPHILS % (AUTO) 68.6 % (43.0-81.0); PLATELET COUNT (AUTO) 177 K/uL (150-450); RED BLOOD CELL COUNT(AUTO) 3.55 MIL/uL (4.0-5.2); WHITE BLOOD COUNT (AUTO) 10.3 K/uL (4.3-11.0)
[2023-02-24] MEDS ORDERED: AZITHROMYCIN 250 MG TABLET ONE (18:14)
--- NOTE | 2023-02-24 18:15 | NUR ---
COLT COLLECTED SENT TO LAB
[2023-02-24 18:21] LABS: CALCIUM, SERUM 8.4 mg/dL (8.5-10.1); CARBON DIOXIDE 25 mmol/L (21-32); CHLORIDE 106 mmol/L (98-107); CREATININE 1.5 mg/dL (0.6-1.3); GLUCOSE 121 mg/dL (74-106); POTASSIUM 3.8 mmol/L (3.5-5.1); SODIUM SERUM 142 mmol/L (136-145); UREA NITROGEN, BLOOD 28 mg/dL (7-18)
[2023-02-24 18:34] LABS: ALANINE AMINOTRANSFERASE 21 U/L (12-78); ALBUMIN 2.6 g/dL (3.4-5.0); ALKALINE PHOSPHATASE 51 U/L (46-116); ASPARTATE AMINOTRANSFERASE 16 U/L (15-37); BILIRUBIN,TOTAL 0.2 mg/dL (0.2-1.0); TOTAL PROTEIN, SERUM 5.5 g/dL (6.4-8.2)
--- NOTE | 2023-02-24 18:46 | NUR ---
mrsa swab done sent to lab
[2023-02-24 18:54] LABS: BILIRUBIN,URINE NEGATIVE (NEGATIVE); COLOR,URINE YELLOW (YELLOW); LEUKOCYTE ESTERASE ,URINE 1+ (NEGATIVE); NITRITE, URINE POSITIVE (NEGATIVE); PROTEIN,URINE NEGATIVE (NEGATIVE); UGLUCOSE NEGATIVE (NEGATIVE); UROBILINOGEN,URINE 0.2 EU/dL (0.2)
[2023-02-24 19:04] LABS: BACTERIA,URINE 3+ /HPF (None Seen); RBC,URINE 0-2 /HPF (0-2); SQUAMOUS EPITHELIAL CELL,UR 0-2 /HPF (None Seen)
--- NOTE | 2023-02-24 19:15 | NUR ---
pt helped changed diapher
--- NOTE | 2023-02-24 19:30 | NUR ---
RECEIVED REPORT FROM DIVYA GARZA. PT CAME FROM SNF EARLIER CC OF LOW BP AND + COVID. PATIENT IS DEMENTED. ALERT, AWAKE AND RESPONDS TO VERBAL COMMAND. WITH IV CARMEN ON LEFT FA G20 FROM SNF. NEEDS ASSISTANCE ON B/B. ATTACHED TO MONITOR. VITALS CHECKED. PATIENT FOR ADMISSION D/T COVID AND PNEUMONIA
--- NOTE | 2023-02-24 21:24 | NUR ---
ROOM [facility]
--- NOTE | 2023-02-24 21:32 | NUR ---
REPORT GIVEN TO DIVYA MOODY
--- NOTE | 2023-02-24 22:48 | NUR ---
TRANFERED PT TO [facility] WITH ACLS PROTOCOL.
--- NOTE | 2023-02-24 23:15 | NUR ---
MS SALES INSPECTOR NOTE RECEIVED PT VIA GURNEY FROM ER WITH ADMITTING DX OF ACUTE HYPOXIC RESPI FAILURE, SECONDARY TO COVID-19 PNA. PT IS AWAKE, A/O X 4, ABLE TO VERBALIZE NEEDS. CURRENTLY ON ROOM AIR, TOLERATING WELL, SATING @ 95%. NO S/SX OF ACUTE RESPI DISTRESS NOTED AT THIS TIME. NO SOB. BREATHING IS EVEN AND UNLABORED. PT HAS NOTICEABLE COUGH. IV ACCESS ON L WRIST, #20g, PATENT AND INTACT. PT NOTED TO HAVE WOUND ON THE SACRUM. PICTURE TAKEN AND PLACE IN THE CHART. WOUND CONSULT ORDERED. PT IN CONTACT AND DROPLET PRECAUTION. ALL SAFETY MEASURES IN PLACE: BED LOCKED IN LOW POSITION. BED ALARM ON. SR UP X 2. CALL LIGHT WITHIN REACH. WILL CONTINUE TO MONITOR AND REASSESS FOR ANY CHANGES AND WILL CARRY OUT ANY ONGOING AND ACTIVE MD ORDER.
--- NOTE | 2023-02-24 23:30 | NUR ---
RN NOTE PT REFUSED OPTIFOAM TO BE PLACED ON HER SACRUM. HAS BRP, AMBULATORY WITH ASSISTANCE. REMINDED PT TO USE CALL LIGHT WHEN GETTING UP FROM BED FOR SAFETY PRECAUTIONS. PT VERBALIZED UNDERSTANDING.
[2023-02-25 04:00] VITALS: BP 136/40
--- NOTE | 2023-02-25 06:17 | NUR ---
MS RN CLOSING NOTE PT IS ALERT BUT CAN GET CONFUSED AT TIMES. REORIENTATION PROVIDED. SAFETY PRECAUTIONS IN PLACE. ALL NEEDS MET. VS STABLE. KEPT PT CLEAN AND DRY. WILL ENDORSE TO AM SHIFT NURSE FOR GRETCHEN.
--- NOTE | 2023-02-25 07:00 | NUR ---
RN OPENING NOTE RECEIVED PATIENT AWAKE, A/O X 4, ABLE TO VERBALIZE NEEDS. CURRENTLY ON ROOM AIR, TOLERATING WELL, SATING @ 95%. NO S/SX OF ACUTE RESPI DISTRESS, DISCOMFORT, OR SHORTNESS OF BREATH NOTED AT THIS TIME. BREATHING EVENLY AND UNLABORED. PT HAS NOTICEABLE COUGH. IV ACCESS ON L WRIST, #20g, PATENT AND FLUSHING WELL. PT IN CONTACT AND DROPLET PRECAUTION. PATIENT HAS SACRUM WOUND, WOUND CARE WILL BE PERFORMED ACCORDING TO DOCTORS ORDERS. ALL SAFETY MEASURES IN PLACE, BED LOCKED IN LOWEST POSITION, BED ALARM ON. SIDE RAILS UP X 2. CALL LIGHT WITHIN REACH. WILL CONTINUE TO MONITOR.
[2023-02-25 07:11] LABS: BASOPHILS % (AUTO) 0.2 % (0.0-2.0); EOSINOPHILS % (AUTO) 0.4 % (0.0-6.0); HEMATOCRIT 39 % (33-45); HEMOGLOBIN 12.7 g/dL (11.5-14.8); LYMPHOCYTES # (AUTO) 1.1 K/uL (0.8-4.8); LYMPHOCYTES % (AUTO) 13.6 % (20.0-44.0); MEAN CORPUSCULAR HGB CONC 32 g/dl (31.0-36.0); MEAN CORPUSCULAR VOLUME 96 fL (82-100); MONOCYTES % (AUTO) 12.3 % (2.0-12.0); NEUTROPHILS # (AUTO) 6.1 K/uL (1.8-8.9); NEUTROPHILS % (AUTO) 73.5 % (43.0-81.0); PLATELET COUNT (AUTO) 193 K/uL (150-450); RED BLOOD CELL COUNT(AUTO) 4.08 MIL/uL (4.0-5.2); WHITE BLOOD COUNT (AUTO) 8.4 K/uL (4.3-11.0)
[2023-02-25 07:19] LABS: CALCIUM, SERUM 9.2 mg/dL (8.5-10.1); POTASSIUM 3.4 mmol/L (3.5-5.1)
[2023-02-25] MEDS: PANTOPRAZOLE 40 MG TABLET.DR PO SCH (07:57)
[2023-02-25] MEDS: AZITHROMYCIN 250 MG TABLET PO SCH (09:15)
[2023-02-25] MEDS: ZINC SULFATE 220 MG CAPSULE PO SCH (09:15)
[2023-02-25] MEDS: ASCORBIC ACID 500 MG TABLET PO SCH (09:15)
[2023-02-25] MEDS ORDERED: POTASSIUM CHLORIDE 20 MEQ TAB.PRT.SR PO ONE (10:00)
--- NOTE | 2023-02-25 12:05 | NUR ---
RN NOTE PATIENT ANXIOUS, CONTINUES TO GET OUT OF BED, BED ALARM ON, BED IN LOWEST AND LOCKED POSITION, ALL SAFETY PRECAUTIONS TAKEN, PATIENT WAS REORIENTED.
[2023-02-25 12:52] VITALS: BP 107/64
--- NOTE | 2023-02-25 19:06 | NUR ---
RN NOTE PATIENT AWAKE, A/O X 4, ABLE TO VERBALIZE NEEDS. CURRENTLY ON ROOM AIR, TOLERATING WELL, SATING @ 96%. NO S/SX OF ACUTE RESPI DISTRESS, DISCOMFORT, OR SHORTNESS OF BREATH NOTED AT THIS TIME. BREATHING EVENLY AND UNLABORED. PT HAS NOTICEABLE COUGH. IV ACCESS ON L WRIST, #20g, PATENT AND FLUSHING WELL. PT IN CONTACT AND DROPLET PRECAUTION. PATIENT WAS REPOSITIONED EVERY TWO HOURS, ALL MEDICATIONS GIVEN ACCORDING TO DOCTORS ORDERS. ALL SAFETY MEASURES IN PLACE, BED LOCKED IN LOWEST POSITION, BED ALARM ON. SIDE RAILS UP X 2. CALL LIGHT WITHIN REACH. REPORT GIVEN TO ORDER PROCESSING MANAGER FOR CONTINUING OF CARE.
--- NOTE | 2023-02-25 19:30 | NUR ---
MS RN OPENING NOTES - RECEIVED PATIENT AWAKE IN BED, ON CONTACT AND DROPLET ISOLATION. ALERT BUT REFUSED TO TELL ME HER NAME OR ANSWER ANY QUESTIONS. BREATHING EVEN AND NON-LABORED ON ROOM AIR. NOT IN APPARENT DISTRESS. NO C/O PAIN OR DISCOMFORT AT THIS TIME. HAS LEFT FOREARM IV ACCESS #20G AND SALINE LOCKED. NO S/S OF INFILTRATION NOTED. SAFETY PRECAUTIONS IN PLACE: BED LOCKED AND IN LOWEST POSITION, SIDE RAILS UP X2, BED ALARM ON, CALL LIGHT WITHIN REACH. WILL CONTINUE PLAN OF CARE.
[2023-02-25 20:00] VITALS: BP 106/70
--- NOTE | 2023-02-25 21:00 | NUR ---
NOTIFIED HOSPITALIST BRENDA THAT MED RECON NEEDS TO BE DONE.
[2023-02-25] MEDS ORDERED: TEMAZEPAM 15 MG CAPSULE PO PRN (21:30)
[2023-02-25] MEDS: DIVALPROEX SODIUM 125 MG CAP.SPRINK PO SCH (22:02)
[2023-02-25] MEDS: OLANZAPINE 10 MG TABLET PO SCH (22:02)
[2023-02-26] MEDS: LORAZEPAM 0.5 MG TABLET PO PRN (03:11)
--- NOTE | 2023-02-26 03:11 | NUR ---
PATIENT HAVING BUE TREMORS MORE ON THE RIGHT, KEPT GETTING OUT OF BED AND WALKING IN THE HALLWAY. ADMINISTERED PRN ATIVAN 0.5MG, TOLERATED WELL. WILL CONTINUE TO MONITOR.
[2023-02-26 04:00] VITALS: BP 124/72
--- NOTE | 2023-02-26 04:53 | NUR ---
PATIENT PULLED OUT HER PIV, REFUSING REINSERTION. AWARE.
--- NOTE | 2023-02-26 06:52 | NUR ---
MS RN CLOSING NOTES - PATIENT AWAKE, KEPT TRYING TO GO OUT OF HER ROOM. FREQUENT REORIENTATION NEEDED. NO SOB OR NOTED, VERBALIZED SHE IS FEELING BETTER. AFEBRILE. BUE TREMORS NOTED. NO PIV AT THIS TIME, REFUSED REINSERTION. ALL DUE MEDS GIVEN AND NEEDS ATTENDED. PLACED OPTIFOAM ON SACRAL DTI. AMBULATORY WITH STEADY GAIT, NEEDS MINIMAL ASSISTANCE WITH ADLS. SAFETY PRECAUTIONS AND ISOLATION MAINTAINED. WILL ENDORSE TO NEXT SHIFT FOR GRETCHEN.
[2023-02-26 08:00] VITALS: BP 115/64
[2023-02-26] MEDS: DIVALPROEX SODIUM 125 MG CAP.SPRINK PO SCH ×3 (08:22→16:16)
[2023-02-26] MEDS: ASCORBIC ACID 500 MG TABLET PO SCH (08:22)
[2023-02-26] MEDS: AZITHROMYCIN 250 MG TABLET PO SCH (08:22)
[2023-02-26] MEDS: DOCUSATE SODIUM 100 MG CAPSULE PO SCH (08:22)
[2023-02-26] MEDS: ZINC SULFATE 220 MG CAPSULE PO SCH (08:22)
[2023-02-26] MEDS: ENSURE ENLIVE 237 ML LIQUID (VANILLA) PO SCH ×2 (08:23→16:14)
[2023-02-26] MEDS: OLANZAPINE 5 MG TABLET PO SCH ×2 (08:23→16:16)
[2023-02-26] MEDS: BENZTROPINE MESYLATE (1 MG) 1 MG TABLET PO SCH ×3 (08:23→16:17)
[2023-02-26] MEDS: PANTOPRAZOLE 40 MG TABLET.DR PO SCH (08:23)
[2023-02-26] MEDS ORDERED: OLANZAPINE 5 MG TABLET PO SCH (09:00)
[2023-02-26 16:00] VITALS: BP 120/60
[2023-02-26] MEDS ORDERED: Medication Not On Formulary EA (Zinc 50 MG) PO SCH (18:00)
--- NOTE | 2023-02-26 18:25 | NUR ---
END OF SHIFT SUMMARY PATIENT IS A/OX 1-2, CONFUSED. FREQUENT REORIENTATION NEEDED. AMBULATORY WITH STEADY GAIT. PATIENT KEEPS ON GETTING OUT OF HER ROOM, HEALTH TEACHING GIVEN. REDIRECTABLE BUT NEEDS REINFORCEMENT. CONTINENT/INCONTINENT. BM X1. STILL REFUSING IV/ACCESS, MD AWARE. REMAINS ON CONTACT AND DROPLET ISOLATION. SAFETY MEASURES MAINTAINED. BED IN LOWEST POSITION, BRAKES LOCKED. SIDE RAILS UP X2. CALL LIGHT WITHIN REACH. WILL ENDORSE CONTINUITY OF CARE TO ONCOMING SHIFT. DC PLANNING TO [place]. PER SNF, BED WILL BE AVAILABLE TOMORROW.
--- NOTE | 2023-02-26 19:30 | NUR ---
MS RN OPENING NOTE RECEIVED PATIENT AWAKE, A/O X 2, WITH PERIODS OF CONFUSION. CURRENTLY ON ROOM AIR, TOLERATING WELL, SATING @ 95%. NO S/SX OF ACUTE RESPI DISTRESS, DISCOMFORT, OR SHORTNESS OF BREATH NOTED AT THIS TIME. BREATHING EVENLY AND UNLABORED. NO IV ACCESS AT THIS TIME, MD AWARE. PT IN CONTACT AND DROPLET PRECAUTION. PATIENT HAS SACRUM WOUND, WOUND CARE WILL BE PERFORMED ACCORDING TO DOCTORS ORDERS. ALL SAFETY MEASURES IN PLACE, BED LOCKED IN LOWEST POSITION, BED ALARM ON. SIDE RAILS UP X 2. CALL LIGHT WITHIN REACH. WILL CONTINUE TO MONITOR THROUGHOUT THE SHIFT.
[2023-02-26 20:00] VITALS: BP 101/60
[2023-02-26] MEDS: OLANZAPINE 10 MG TABLET PO SCH (21:10)
[2023-02-27] MEDS: LORAZEPAM 0.5 MG TABLET PO PRN (03:36)
[2023-02-27 04:00] VITALS: BP 113/73
--- NOTE | 2023-02-27 06:30 | NUR ---
MS RN CLOSING NOTE PATIENT REMAINS ON BED AWAKE, A/O X 2, WITH PERIODS OF CONFUSION. CURRENTLY ON ROOM AIR, TOLERATING WELL, SATING @ 95%. NO S/SX OF ACUTE RESPI DISTRESS, DISCOMFORT, OR SHORTNESS OF BREATH NOTED AT THIS TIME. BREATHING EVENLY AND UNLABORED. IV ACCESS AT L WRIST #22G INTACT AND PATENT. PT IN CONTACT AND DROPLET PRECAUTION. ALL SAFETY MEASURES IN PLACE, BED LOCKED IN LOWEST POSITION, BED ALARM ON. ALL DUE MEDS GIVEN, KEPT DRY AND CLEAN, SIDE RAILS UP X 2. CALL LIGHT WITHIN REACH. WILL ENDORSE TO AM SHIFT NURSE FOR CONTINUITY OF CARE.
--- NOTE | 2023-02-27 07:30 | NUR ---
MS RN OPENING NOTE PATIENT REMAINS ON BED AWAKE, A/O X 2, WITH PERIODS OF CONFUSION. CURRENTLY ON ROOM AIR, TOLERATING WELL, SATING ABOVE 95%, NO S/SX OF ACUTE RESPI DISTRESS, DISCOMFORT, OR SHORTNESS OF BREATH NOTED AT THIS TIME. BREATHING EVENLY AND UNLABORED. IV ACCESS AT L WRIST #22G INTACT AND PATENT. PT IN CONTACT AND DROPLET PRECAUTION. ALL SAFETY MEASURES IN PLACE, BED LOCKED IN LOWEST POSITION, BED ALARM ON.SIDE RAILS UP X 2. CALL LIGHT WITHIN REACH.PLAN OF CARE CONTINUE.
[2023-02-27 08:00] VITALS: BP 108/69
[2023-02-27] MEDS: ENSURE ENLIVE 237 ML LIQUID (VANILLA) PO SCH (08:12)
[2023-02-27] MEDS: DIVALPROEX SODIUM 125 MG CAP.SPRINK PO SCH ×2 (08:32→12:36)
[2023-02-27] MEDS: AZITHROMYCIN 250 MG TABLET PO SCH (08:32)
[2023-02-27] MEDS: DOCUSATE SODIUM 100 MG CAPSULE PO SCH (08:32)
[2023-02-27] MEDS: PANTOPRAZOLE 40 MG TABLET.DR PO SCH (08:32)
[2023-02-27] MEDS: ZINC SULFATE 220 MG CAPSULE PO SCH (08:32)
[2023-02-27] MEDS: ASCORBIC ACID 500 MG TABLET PO SCH (08:32)
[2023-02-27] MEDS: OLANZAPINE 5 MG TABLET PO SCH (08:32)
[2023-02-27] MEDS: BENZTROPINE MESYLATE (1 MG) 1 MG TABLET PO SCH ×2 (08:32→12:36)
[2023-02-27] MEDS ORDERED: PROSOURCE / PROSTAT (PYXIS) 30 ML UDC GT SCH (09:00)
--- NOTE | 2023-02-27 09:06 | NUR ---
RAPID COVID TEST SWAB DONE, SEND TO THE LAB.
--- NOTE | 2023-02-27 09:20 | NUR ---
WOUND CARE CONSULT: REVIEWED CHART, NURSING DOCUMENTATION AND PHOTO WHICH INDICATES SACRAL DEEP TISSUE INJURY, PRESENT ON ADMISSION. RECOMMENDATIONS FOR SKIN PROTECTION DISCUSSED WITH NURSING STAFF. MD IN AGREEMENT WITH PLAN OF CARE.
--- NOTE | 2023-02-27 13:36 | NUR ---
CALLED [facility] SPOKE TO YANN STOKES AND GAVE REPORT, CONFIRMED UNDERSTANDING.
--- NOTE | 2023-02-27 15:00 | NUR ---
PATIENT STONEMASON SUPERVISOR BY 2 EMT'S, GAVE REPORT, ALL DISCHARGE PAPERWORKS RELEASED TO THE PATIENT, PATIENT EXITED THE HOSPITAL VIA GURNEY.
== END 2023-02-27 15:01 | DRG 177 ==
LOC: ER 16:51 → TELE1 21:42 → MEDSG1 23:15
PROVIDERS: ADMIT Nurse Practitioner Acute Care; ATTEND Nurse Practitioner Acute Care
DX: U07.1 COVID-19 (principal); J12.82 Pneumonia due to coronavirus disease 2019; J15.9 Unspecified bacterial pneumonia; N17.0 Acute kidney failure with tubular necrosis; Z68.1 Body mass index [BMI] 19.9 or less, adult; E86.0 Dehydration; F20.9 Schizophrenia, unspecified; G47.9 Sleep disorder, unspecified; F41.9 Anxiety disorder, unspecified; E87.6 Hypokalemia; R63.0 Anorexia; F32.A Depression, unspecified; Z79.899 Other long term (current) drug therapy
CPT/HCPCS: 36415; 71045-TC; 80048-TC; 80076-TC; 81001; 82962-TC; 83735-TC; 83880; 84100-TC; 84484-TC; 85025-TC; 87081-TC; 87086-TC; A4223; C9803; G0378; J7030

== ENCOUNTER 2023-04-16 08:45 | Emergency (ER) | payer MEDICARE, OTHER ==
[~2023-04-16] VITALS: Ht 160 cm; Wt 48.1 kg
[~2023-04-16 08:45] MED LIST changes: +ASCO-352 PO; +BENZ0.5T43 PO; -CRAN400C PO; +DIVA125C2 PO; +LORA-259 PO; -MEGE40TA7 PO; +OLAN10TA3 PO; +OLAN5TAB3 PO; +ZINC50TA69 PO
[2023-04-16 09:02] VITALS: BP 102/68; TEMP 98.3
--- NOTE | 2023-04-16 11:00 | NUR ---
PIYUSH FROM [facility] FOR CHIN LACERATION S/P SLIP AND FALL THIS MORNING.
[2023-04-16] MEDS ORDERED: LIDOCAINE 1%-EPI 1:100,000 20 ML VIAL ONE (11:12)
--- NOTE | 2023-04-16 11:25 | NUR ---
SUTURE DONE BY WITH LOCAL ANESTHESIA.
--- NOTE | 2023-04-16 11:57 | NUR ---
CALLED [facility] FOR TRANSPORT ETA 30 MINS.
--- NOTE | 2023-04-16 12:17 | NUR ---
REPORT GIVEN TO [facility].
--- NOTE | 2023-04-16 12:42 | NUR ---
PATIENT PICKUP BY [facility] STAFF GOING BACK TO SNF.
== END 2023-04-16 12:41 ==
LOC: ER 08:57
DX: S01.81XA Laceration without foreign body of other part of head, initial encounter (principal); F03.90 Unspecified dementia, unspecified severity, without behavioral disturbance, psychotic disturbance, mood disturbance, and anxiety; Z79.899 Other long term (current) drug therapy; W01.0XXA Fall on same level from slipping, tripping and stumbling without subsequent striking against object, initial encounter; Y93.89 Activity, other specified; Y92.89 Other specified places as the place of occurrence of the external cause; Y99.8 Other external cause status
CPT/HCPCS: 12013; 99283; J3490

== ENCOUNTER 2023-09-12 13:00 | Inpatient (IN) | payer MEDICARE, OTHER ==
[~2023-09-12] VITALS: Ht 160 cm; Wt 54.0 kg
[~2023-09-12 13:00] MED LIST changes: +CEFT1VIA15 IV; +CRAN425C6 PO; +PANT40TA2 PO; -ZINC50TA69 PO
[2023-09-12] MEDS ORDERED: DIVA125T32 PO (13:54)
[2023-09-12] MEDS ORDERED: DOCU100T2 PO (13:54)
[2023-09-12 14:05] LABS: BASOPHILS % (AUTO) 0.4 % (0.0-2.0); EOSINOPHILS # (AUTO) 0.1 K/uL (0.0-0.7); EOSINOPHILS % (AUTO) 0.9 % (0.0-6.0); HEMATOCRIT 41 % (33-45); HEMOGLOBIN 13.4 g/dL (11.5-14.8); LYMPHOCYTES # (AUTO) 2.4 K/uL (0.8-4.8); LYMPHOCYTES % (AUTO) 27.9 % (20.0-44.0); MEAN CORPUSCULAR HEMOGLOBIN 32 PG (26.0-33.0); MEAN CORPUSCULAR HGB CONC 33 g/dl (31.0-36.0); MEAN CORPUSCULAR VOLUME 98 fL (82-100); MONOCYTES # (AUTO) 0.6 K/uL (0.1-1.30); MONOCYTES % (AUTO) 7.3 % (2.0-12.0); NEUTROPHILS # (AUTO) 5.4 K/uL (1.8-8.9); NEUTROPHILS % (AUTO) 63.5 % (43.0-81.0); PLATELET COUNT (AUTO) 230 K/uL (150-450); RED CELL DISTRIBUTION WIDTH 13.4 % (11.5-15.0); WHITE BLOOD COUNT (AUTO) 8.5 K/uL (4.3-11.0)
[2023-09-12 14:15] LABS: INR 1.08 (0.91-1.10); PROTHROMBIN TIME 11.4 SECS (9.2-11.1)
[2023-09-12 14:20] LABS: CALCIUM, SERUM 9.6 mg/dL (8.5-10.1); CARBON DIOXIDE 30 mmol/L (21-32); CHLORIDE 99 mmol/L (98-107); CREATININE 1.1 mg/dL (0.6-1.3); GLUCOSE 120 mg/dL (74-106); POTASSIUM 3.8 mmol/L (3.5-5.1); SODIUM SERUM 134 mmol/L (136-145); UREA NITROGEN, BLOOD 23 mg/dL (7-18)
[2023-09-12 14:27] LABS: ALANINE AMINOTRANSFERASE 29 U/L (12-78); ALBUMIN 3.5 g/dL (3.4-5.0); ALKALINE PHOSPHATASE 65 U/L (46-116); ASPARTATE AMINOTRANSFERASE 33 U/L (15-37); BILIRUBIN,DIRECT 0.1 mg/dL (0.0-0.2); BILIRUBIN,TOTAL 0.4 mg/dL (0.2-1.0); TOTAL PROTEIN, SERUM 7.6 g/dL (6.4-8.2)
[2023-09-12 14:29] LABS: ALCOHOL, BLOOD < 3 mg/dL (0-10); SALICYLATE 1.5 mg/dL (2.8-20.0)
[2023-09-12 14:31] LABS: THYROID STIMULATING HORMONE 1.977 uIU/mL (0.358-3.74)
[2023-09-12 15:09] LABS: APPEARANCE,URINE CLEAR (CLEAR); BILIRUBIN,URINE NEGATIVE (NEGATIVE); BLOOD, URINE NEGATIVE Ery/uL (NEGATIVE); COLOR,URINE YELLOW (YELLOW); KETONES,URINE NEGATIVE (NEGATIVE); LEUKOCYTE ESTERASE ,URINE TRACE (NEGATIVE); NITRITE, URINE NEGATIVE (NEGATIVE); PROTEIN,URINE NEGATIVE (NEGATIVE); UGLUCOSE NEGATIVE (NEGATIVE); UROBILINOGEN,URINE 0.2 EU/dL (0.2)
[2023-09-12 15:33] LABS: AMPHETAMINE, URINE NEGATIVE (NEGATIVE); BARBITURATE, URINE NEGATIVE (NEGATIVE); BENZODIAZEPINE, URINE NEGATIVE (NEGATIVE); CANNABINOID, URINE NEGATIVE (NEGATIVE); COCCAINE, URINE NEGATIVE (NEGATIVE); OPIATE, URINE NEGATIVE (NEGATIVE); PHENCYCLIDINE SCREEN,URINE NEGATIVE (NEGATIVE)
[2023-09-12 15:56] LABS: ADD URINE CULTURE NO; BACTERIA,URINE None seen /HPF (None Seen); RBC,URINE NONE SEEN /HPF (0-2); SQUAMOUS EPITHELIAL CELL,UR None Seen /HPF (None Seen)
[2023-09-12 16:00] VITALS: BP 122/73; TEMP 97.5; O2SAT 100
[2023-09-12] MEDS ORDERED: MAG HYDROX/AL HYDROX/SIMETH 30 ML UDC PO PRN (17:30)
[2023-09-12] MEDS ORDERED: ACETAMINOPHEN 325 MG TABLET PO PRN ×2 (17:30)
[2023-09-12] MEDS ORDERED: BISACODYL SUPP (10 MG) 10 MG/SUPP.RECT SUPP.RECT RC PRN (17:30)
[2023-09-12] MEDS ORDERED: IV NS 0.9% 1,000 ML IV PRN (17:30)
[2023-09-12] MEDS ORDERED: ONDANSETRON HCL/PF 4 MG/2 ML VIAL IVP PRN (17:30)
[2023-09-12] MEDS ORDERED: Z GUARD REMEDY 4 OZ OINT TP PRN (17:30)
[2023-09-12] MEDS ORDERED: MAGNESIUM HYDROXIDE 30 ML UDC PO PRN ×2 (17:30)
[2023-09-12] MEDS ORDERED: NA PHOS,M-B/NA PHOS,DI-BA 1 EA ENEMA RC PRN (17:30)
[2023-09-12] MEDS: OLANZAPINE 5 MG TABLET PO SCH (19:06)
[2023-09-12] MEDS: DIVALPROEX SODIUM 125 MG TABLET.DR PO SCH (19:07)
[2023-09-12] MEDS: LORAZEPAM 1 MG TABLET PO SCH (19:07)
[2023-09-12] MEDS: OLANZAPINE 10 MG TABLET PO SCH (22:24)
[2023-09-13] VITALS: BP 119/70; TEMP 98.1; O2SAT 100
[2023-09-13] MEDS: TEMAZEPAM 15 MG CAPSULE PO PRN (04:25)
[2023-09-13 07:37] LABS: BASOPHILS % (AUTO) 0.2 % (0.0-2.0); EOSINOPHILS # (AUTO) 0.1 K/uL (0.0-0.7); HEMATOCRIT 36 % (33-45); LYMPHOCYTES # (AUTO) 2.5 K/uL (0.8-4.8); LYMPHOCYTES % (AUTO) 28.5 % (20.0-44.0); MEAN CORPUSCULAR HEMOGLOBIN 32 PG (26.0-33.0); MEAN CORPUSCULAR HGB CONC 33 g/dl (31.0-36.0); MEAN CORPUSCULAR VOLUME 98 fL (82-100); MONOCYTES # (AUTO) 1.1 K/uL (0.1-1.30); MONOCYTES % (AUTO) 12.6 % (2.0-12.0); NEUTROPHILS % (AUTO) 57.7 % (43.0-81.0); PLATELET COUNT (AUTO) 217 K/uL (150-450); RED BLOOD CELL COUNT(AUTO) 3.72 MIL/uL (4.0-5.2); WHITE BLOOD COUNT (AUTO) 8.7 K/uL (4.3-11.0)
[2023-09-13 07:58] LABS: MAGNESIUM 2.1 mg/dL (1.8-2.4); PHOSPHORUS 3.4 mg/dL (2.5-4.9); POTASSIUM 3.6 mmol/L (3.5-5.1)
[2023-09-13 08:00] VITALS: BP 133/82; TEMP 97.7; O2SAT 100
[2023-09-13] MEDS ORDERED: OLANZAPINE 5 MG TABLET PO SCH (09:00)
[2023-09-13] MEDS ORDERED: LORAZEPAM 1 MG TABLET PO SCH (09:00)
[2023-09-13] MEDS ORDERED: DIVALPROEX SODIUM 125 MG TABLET.DR PO SCH (09:00)
[2023-09-13] MEDS: DIVALPROEX SODIUM 125 MG TABLET.DR PO SCH ×3 (10:17→17:03)
[2023-09-13] MEDS: OLANZAPINE 5 MG TABLET PO SCH ×2 (10:17→17:03)
[2023-09-13] MEDS: PANTOPRAZOLE 40 MG TABLET.DR PO SCH (10:18)
[2023-09-13] MEDS: LORAZEPAM 1 MG TABLET PO SCH ×3 (10:18→17:03)
[2023-09-13] MEDS: DOCUSATE SODIUM 100 MG CAPSULE PO SCH (10:18)
[2023-09-13 16:00] VITALS: BP 118/72; TEMP 97.3; O2SAT 98
[2023-09-13] MEDS: BENZTROPINE MESYLATE (1 MG) 1 MG TABLET PO SCH (17:06)
[2023-09-13] MEDS: OLANZAPINE 10 MG TABLET PO SCH (23:31)
[2023-09-14] VITALS: BP 117/92; TEMP 97.6; O2SAT 98
[2023-09-14] MEDS: PANTOPRAZOLE 40 MG TABLET.DR PO SCH (07:56)
[2023-09-14 08:00] VITALS: BP 110/75; TEMP 97.7; O2SAT 99
[2023-09-14] MEDS: LORAZEPAM 1 MG TABLET PO SCH ×3 (08:18→16:02)
[2023-09-14] MEDS: DOCUSATE SODIUM 100 MG CAPSULE PO SCH (08:19)
[2023-09-14] MEDS: BENZTROPINE MESYLATE (1 MG) 1 MG TABLET PO SCH ×3 (08:19→16:03)
[2023-09-14] MEDS: OLANZAPINE 5 MG TABLET PO SCH ×2 (08:19→16:04)
[2023-09-14] MEDS: DIVALPROEX SODIUM 125 MG TABLET.DR PO SCH ×3 (08:19→16:03)
[2023-09-14 16:00] VITALS: BP 110/71; TEMP 97.9; O2SAT 99
[2023-09-14] MEDS: TEMAZEPAM 15 MG CAPSULE PO PRN (21:13)
[2023-09-14] MEDS: OLANZAPINE 10 MG TABLET PO SCH (21:57)
[2023-09-15] VITALS: BP 119/75; TEMP 97.7; O2SAT 98
[2023-09-15 04:06] LABS: FOLIC ACID 17.3 ng/mL (>3.0)
[2023-09-15] MEDS: PANTOPRAZOLE 40 MG TABLET.DR PO SCH (07:45)
[2023-09-15 08:00] VITALS: BP 129/70; TEMP 97.5; O2SAT 97
[2023-09-15] MEDS: LORAZEPAM 1 MG TABLET PO SCH ×3 (09:27→17:22)
[2023-09-15] MEDS: DIVALPROEX SODIUM 125 MG TABLET.DR PO SCH ×3 (09:27→17:22)
[2023-09-15] MEDS: DOCUSATE SODIUM 100 MG CAPSULE PO SCH (09:27)
[2023-09-15] MEDS: OLANZAPINE 5 MG TABLET PO SCH ×2 (09:28→17:22)
[2023-09-15] MEDS: BENZTROPINE MESYLATE (1 MG) 1 MG TABLET PO SCH ×3 (09:28→17:22)
[2023-09-15 16:00] VITALS: BP 124/71; TEMP 98.1; O2SAT 98
[2023-09-15 20:00] VITALS: BP 108/65; TEMP 97.3; O2SAT 100
[2023-09-15] MEDS: OLANZAPINE 10 MG TABLET PO SCH (21:31)
[2023-09-16 04:00] VITALS: BP 110/70; TEMP 97.9; O2SAT 100
[2023-09-16] MEDS: PANTOPRAZOLE 40 MG TABLET.DR PO SCH (07:52)
[2023-09-16] MEDS: LORAZEPAM 1 MG TABLET PO SCH (08:58)
[2023-09-16] MEDS: OLANZAPINE 5 MG TABLET PO SCH (08:58)
[2023-09-16] MEDS: BENZTROPINE MESYLATE (1 MG) 1 MG TABLET PO SCH (08:59)
[2023-09-16] MEDS: DIVALPROEX SODIUM 125 MG TABLET.DR PO SCH (08:59)
[2023-09-16] MEDS: DOCUSATE SODIUM 100 MG CAPSULE PO SCH (08:59)
[2023-09-16] MEDS ORDERED: CARBIDOPA/LEVODOPA 25/100 MG 1 UDTAB PO SCH (09:00)
== END 2023-09-16 12:47 | DRG 640 ==
LOC: ER 13:01 → MEDSG1 15:36
PROVIDERS: ADMIT Internal Medicine; ATTEND Nurse Practitioner Acute Care
DX: R62.7 Adult failure to thrive (principal); E43 Unspecified severe protein-calorie malnutrition; F02.83 Dementia in other diseases classified elsewhere, unspecified severity, with mood disturbance; F02.84 Dementia in other diseases classified elsewhere, unspecified severity, with anxiety; F02.82 Dementia in other diseases classified elsewhere, unspecified severity, with psychotic disturbance; G20.C Parkinsonism, unspecified; F39 Unspecified mood [affective] disorder; F32.A Depression, unspecified; Z79.899 Other long term (current) drug therapy; H81.10 Benign paroxysmal vertigo, unspecified ear; R79.89 Other specified abnormal findings of blood chemistry; F29 Unspecified psychosis not due to a substance or known physiological condition; G47.9 Sleep disorder, unspecified; T50.905A Adverse effect of unspecified drugs, medicaments and biological substances, initial encounter; Y92.9 Unspecified place or not applicable; Z68.21 Body mass index [BMI] 21.0-21.9, adult
CPT/HCPCS: 36415; 70450-TC; 71045-TC; 80048-TC; 80076-TC; 80164-TC; 81001; 82607-TC; 83735-TC; 83880; 83921; 84100-TC; 84443-TC; 84484-TC; 85025-TC; 85730-TC; 87081-TC; 97112-TC; 97116-TC; 97530-TC; A4223; G0378; G0480; J7030

== ENCOUNTER 2024-04-23 12:16 | Inpatient (IN) | payer MEDICARE, OTHER ==
[~2024-04-23] VITALS: Ht 165.1 cm; Wt 55.3 kg
[~2024-04-23 12:16] MED LIST changes: -CEFT1VIA15 IV; -DIVA125C2 PO; +DIVA125T32 PO; -DOCU-141 PO; +DOCU100T2 PO
[2024-04-23 12:49] LABS: BASOPHILS % (AUTO) 0.2 % (0.0-2.0); EOSINOPHILS % (AUTO) 0.4 % (0.0-6.0); HEMATOCRIT 37 % (33-45); HEMOGLOBIN 12.1 g/dL (11.5-14.8); LYMPHOCYTES # (AUTO) 1.8 K/uL (0.8-4.8); LYMPHOCYTES % (AUTO) 25.8 % (20.0-44.0); MEAN CORPUSCULAR HEMOGLOBIN 32 PG (26.0-33.0); MEAN CORPUSCULAR HGB CONC 33 g/dl (31.0-36.0); MEAN CORPUSCULAR VOLUME 97 fL (82-100); MONOCYTES # (AUTO) 0.7 K/uL (0.1-1.30); MONOCYTES % (AUTO) 10.7 % (2.0-12.0); NEUTROPHILS # (AUTO) 4.4 K/uL (1.8-8.9); NEUTROPHILS % (AUTO) 62.9 % (43.0-81.0); PLATELET COUNT (AUTO) 198 K/uL (150-450); RED BLOOD CELL COUNT(AUTO) 3.81 MIL/uL (4.0-5.2); RED CELL DISTRIBUTION WIDTH 13.4 % (11.5-15.0)
[2024-04-23] MEDS: IV NS 0.9% 500 ML BAG IV ONE (12:50)
[2024-04-23] MEDS ORDERED: OMEG100037 PO (12:55)
[2024-04-23 13:04] LABS: ALBUMIN 3.1 g/dL (3.4-5.0); BILIRUBIN,DIRECT 0.1 mg/dL (0.0-0.2); BILIRUBIN,TOTAL 0.3 mg/dL (0.2-1.0); CALCIUM, SERUM 9.6 mg/dL (8.5-10.1); CREATININE 1.5 mg/dL (0.6-1.3); POTASSIUM 4.7 mmol/L (3.5-5.1); TOTAL PROTEIN, SERUM 7.1 g/dL (6.4-8.2)
[2024-04-23 14:03] LABS: APPEARANCE,URINE CLEAR (CLEAR); BILIRUBIN,URINE NEGATIVE (NEGATIVE); BLOOD, URINE NEGATIVE Ery/uL (NEGATIVE); COLOR,URINE YELLOW (YELLOW); KETONES,URINE TRACE mg/dL (NEGATIVE); LEUKOCYTE ESTERASE ,URINE 3+ (NEGATIVE); NITRITE, URINE POSITIVE (NEGATIVE); PH,URINE 5.5 (5.0-8.0); PROTEIN,URINE NEGATIVE (NEGATIVE); UGLUCOSE NEGATIVE (NEGATIVE); UROBILINOGEN,URINE 0.2 EU/dL (0.2)
[2024-04-23 14:04] LABS: ADD URINE CULTURE YES; BACTERIA,URINE Few /HPF (None Seen); SQUAMOUS EPITHELIAL CELL,UR Rare /HPF (None Seen)
[2024-04-23 16:00] VITALS: BP 113/66; TEMP 97.3; O2SAT 99
[2024-04-23] MEDS ORDERED: ONDANSETRON HCL/PF 4 MG/2 ML VIAL IVP PRN (16:00)
[2024-04-23] MEDS ORDERED: Z GUARD REMEDY 4 OZ OINT TP PRN (16:00)
[2024-04-23] MEDS ORDERED: MAG HYDROX/AL HYDROX/SIMETH 30 ML UDC PO PRN (16:00)
[2024-04-23] MEDS ORDERED: MAGNESIUM HYDROXIDE 30 ML UDC PO PRN (16:00)
[2024-04-23 20:00] VITALS: BP 112/73; TEMP 98.6; O2SAT 97
[2024-04-24 04:00] VITALS: BP 96/58; TEMP 98.4; O2SAT 96
[2024-04-24 07:36] LABS: BASOPHILS % (AUTO) 0.2 % (0.0-2.0); EOSINOPHILS # (AUTO) 0.1 K/uL (0.0-0.7); EOSINOPHILS % (AUTO) 0.8 % (0.0-6.0); HEMATOCRIT 29 % (33-45); HEMOGLOBIN 10.1 g/dL (11.5-14.8); LYMPHOCYTES # (AUTO) 2.5 K/uL (0.8-4.8); LYMPHOCYTES % (AUTO) 33.5 % (20.0-44.0); MEAN CORPUSCULAR HEMOGLOBIN 33 PG (26.0-33.0); MEAN CORPUSCULAR HGB CONC 34 g/dl (31.0-36.0); MEAN CORPUSCULAR VOLUME 97 fL (82-100); MONOCYTES # (AUTO) 1.1 K/uL (0.1-1.30); MONOCYTES % (AUTO) 14.5 % (2.0-12.0); NEUTROPHILS # (AUTO) 3.8 K/uL (1.8-8.9); PLATELET COUNT (AUTO) 172 K/uL (150-450); RED BLOOD CELL COUNT(AUTO) 3.04 MIL/uL (4.0-5.2); RED CELL DISTRIBUTION WIDTH 13.3 % (11.5-15.0); WHITE BLOOD COUNT (AUTO) 7.5 K/uL (4.3-11.0)
[2024-04-24 08:00] VITALS: BP 98/62; TEMP 97.7; O2SAT 96
[2024-04-24 10:24] LABS: CREATININE 1.2 mg/dL (0.6-1.3); MAGNESIUM 1.9 mg/dL (1.8-2.4); PHOSPHORUS 2.8 mg/dL (2.5-4.9); POTASSIUM 4.2 mmol/L (3.5-5.1)
[2024-04-24] MEDS: IV NS 0.9% 1,000 ML IV PRN (10:37)
[2024-04-24] MEDS: CEFTRIAXONE 1 G in IV D5W 50 ML IV SCH (10:39)
[2024-04-24] MEDS ORDERED: GADOTERATE MEGLUMINE 10 MMOL/20 ML VIAL IV ONE (15:41)
[2024-04-24 16:00] VITALS: BP 99/60; TEMP 98.4; O2SAT 96
[2024-04-24 20:00] VITALS: BP 109/71; TEMP 97.9; O2SAT 94
[2024-04-24] MEDS: ACETAMINOPHEN 325 MG TABLET PO PRN (22:06)
[2024-04-25] VITALS: BP 109/71; TEMP 97.9; O2SAT 94
[2024-04-25 04:00] VITALS: BP 120/82; TEMP 97.5; O2SAT 96
[2024-04-25 06:24] LABS: BASOPHILS % (AUTO) 0.4 % (0.0-2.0); EOSINOPHILS # (AUTO) 0.1 K/uL (0.0-0.7); EOSINOPHILS % (AUTO) 0.5 % (0.0-6.0); HEMATOCRIT 33 % (33-45); HEMOGLOBIN 11.3 g/dL (11.5-14.8); LYMPHOCYTES # (AUTO) 2.8 K/uL (0.8-4.8); LYMPHOCYTES % (AUTO) 28.7 % (20.0-44.0); MEAN CORPUSCULAR HEMOGLOBIN 33 PG (26.0-33.0); MEAN CORPUSCULAR HGB CONC 35 g/dl (31.0-36.0); MEAN CORPUSCULAR VOLUME 96 fL (82-100); MONOCYTES # (AUTO) 1.6 K/uL (0.1-1.30); MONOCYTES % (AUTO) 16.6 % (2.0-12.0); NEUTROPHILS # (AUTO) 5.2 K/uL (1.8-8.9); NEUTROPHILS % (AUTO) 53.8 % (43.0-81.0); PLATELET COUNT (AUTO) 217 K/uL (150-450); RED BLOOD CELL COUNT(AUTO) 3.42 MIL/uL (4.0-5.2); RED CELL DISTRIBUTION WIDTH 13.2 % (11.5-15.0); WHITE BLOOD COUNT (AUTO) 9.8 K/uL (4.3-11.0)
[2024-04-25 08:00] VITALS: BP 106/90; TEMP 97.9; O2SAT 96
[2024-04-25] MEDS ORDERED: CEPH-570 PO (09:31)
[2024-04-25 16:00] VITALS: BP 134/75; TEMP 97.3; O2SAT 99
[2024-04-26] VITALS: BP 101/62; TEMP 98.3; O2SAT 97
[2024-04-26 08:00] VITALS: BP 117/68; TEMP 98.8; O2SAT 98
== END 2024-04-26 11:47 | DRG 689 ==
LOC: ER 12:19 → MEDSG1 13:36 → TELE1 14:09 → MEDSG1 14:10
PROVIDERS: ADMIT Internal Medicine; ATTEND Internal Medicine
DX: N39.0 Urinary tract infection, site not specified (principal); G93.41 Metabolic encephalopathy; N17.9 Acute kidney failure, unspecified; E44.0 Moderate protein-calorie malnutrition; J98.11 Atelectasis; K86.3 Pseudocyst of pancreas; F02.83 Dementia in other diseases classified elsewhere, unspecified severity, with mood disturbance; F02.82 Dementia in other diseases classified elsewhere, unspecified severity, with psychotic disturbance; F02.84 Dementia in other diseases classified elsewhere, unspecified severity, with anxiety; F39 Unspecified mood [affective] disorder; F32.A Depression, unspecified; E86.9 Volume depletion, unspecified; Z79.899 Other long term (current) drug therapy; F29 Unspecified psychosis not due to a substance or known physiological condition; G47.9 Sleep disorder, unspecified; G47.00 Insomnia, unspecified; M89.8X9 Other specified disorders of bone, unspecified site; E88.09 Other disorders of plasma-protein metabolism, not elsewhere classified; D64.9 Anemia, unspecified; M84.48XS Pathological fracture, other site, sequela; Z84.1 Family history of disorders of kidney and ureter; K21.9 Gastro-esophageal reflux disease without esophagitis; G20.A1 Parkinson's disease without dyskinesia, without mention of fluctuations; K86.9 Disease of pancreas, unspecified
CPT/HCPCS: 36415; 74183; 80048-TC; 80076-TC; 81001; 83690-TC; 83735-TC; 84100-TC; 85025-TC; 86301; 87081-TC; A4223; A9575; G0378; J0696; J7030; J7040; J7060